=== PATIENT | female | born 1945 | race Caucasian/White ===

== ENCOUNTER 2024-12-25 11:04 | Inpatient (IN) | payer MEDICARE, SELFPAY ==
--- OUTSIDE RECORDS SUMMARY | 2024-12-21 23:59 | XMS_ITS | Continuity of Care Document ---
Author Organization [facility] Address [address] [place] [phone]- Care Team Providers Care Chief Program Officer Name Role Phone Janet Cueva Primary Care Physician Encounter [facility] ACCT R [id number] Date(s): 11/21/24 - 12/21/24 [facility] [address] [place] [phone] Encounter Type: Triage Allergies, Adverse Reactions, Alerts No Known Allergies Immunizations Given and Recorded Vaccine Date Status Refusal Reason SARS-CoV-2 (COVID-19) mRNA BNT-162b2 vac 08/19/20 Given SARS-CoV-2 (COVID-19) mRNA BNT-162b2 vac 07/29/20 Given Tetanus Toxoid Vaccine (oldterm) 02/09/98 Given Medications Albuterol (Eqv-ProAir HFA) 90 mcg/inh inhalation aerosol 0 Refills, Maintenance, 01/10/24 11:48:00 AM EDT, Partial fill upon patient request if the prescription is for a schedule II opioid drug. Start Date: 01/10/24 Status: Ordered Repeat number: 1 albuterol 0.083% inhalation solution 3 mL = 2.5 mg, Neb, Every 6 hours, PRN as needed for wheezing, # 90 mL, 0 Refills, Maintenance, 06/04/22 1:33:00 PM EST, Solution, Partial fill upon patient request if the prescription is for a schedule II opioid drug., 165.1, cm, 06/04/22 12:54:00 EST, Height Start Date: 06/04/22 Status: Ordered Quantity: 90.0 Unit: mL Repeat number: 1 albuterol 0.083% inhalation solution 3 mL = 2.5 mg, Inhalation, Every 6 hours, PRN Wheezing/Shortness of Breath, # 360 mL, 0 Refills, Maintenance, 1/7/17 5:18:06 PM EST Start Date: 06/25/16 Stop Date: 07/25/16 Status: Ordered Quantity: 360.0 Unit: mL Repeat number: 1 Caltrate 600 with D 1 tablet, By Mouth, 2 times a day, 0 Refills, 11/10/05 11:28:16 AM EDT Start Date: 11/10/05 Status: Ordered Repeat number: 1 Claritin 10 mg oral tablet 10 mg, 1, tablet, By Mouth, Daily, 0 Refills Start Date: 11/10/05 Status: Ordered Repeat number: 1 Eliquis 5 mg oral tablet 1 tablet, By Mouth, 2 times a day, # 60 tablet, 5 Refills, Maintenance, 10/31/24 2:36:00 PM EDT, [facility], 165.1, cm, 10/22/24 11:55:00 EDT, Height, 68, kg, 02/26/24 11:08:00 EDT, Dry Weight Start Date: 10/31/24 Status: Ordered Quantity: 60.0 Unit: tablet Repeat number: 1 ipratropium nasal 21 mcg/inh spray 2 sprays, Nares, Both, 2 times a day, # 30 mL, 0 Refills, Maintenance, 01/31/20 4:17:00 PM EDT, [place] Start Date: 01/31/20 Status: Ordered Quantity: 30.0 Unit: mL Repeat number: 1 lisinopril 5 mg oral tablet 5 mg, 1, tablet, By Mouth, Daily, # 30 tablet, Refills 0, Maintenance, 01/12/24 10:05:00 AM EDT, Partial fill upon patient request if the prescription is for a schedule II opioid drug. Start Date: 01/12/24 Status: Ordered Quantity: 30.0 Unit: tablet Repeat number: 1 metoprolol 25 mg oral tablet, extended release 25 mg, 1, tablet, By Mouth, Daily, # 30 tablet, Refills 11, Tot. Refills 11, Maintenance, 12/22/21 1:32:00 PM EDT, Route to Pharmacy Electronically, [facility]/pharmacy #[id number], Partial fill upon patient request if the prescription is for a schedule II opioid drug., 165.1, cm, 12/22/21 13:08:00 EDT, Height, 66.9, kg, 03/09/20 16:53:00 EDT, Dry Weight Start Date: 12/22/21 Status: Ordered Quantity: 30.0 Unit: tablet Repeat number: 12 oxyCODONE 5 mg oral tablet Refills 0, Tot. Refills 0, Maintenance, 01/30/24 1:47:00 PM EDT, Partial fill upon patient request if the prescription is for a schedule II opioid drug. Start Date: 01/30/24 Status: Ordered Repeat number: 1 simethicone 250 mg oral capsule 1 capsule = 250 mg, By Mouth, Daily, PRN as needed for gas, not to exceed 2 capsules/day, # 12 capsule, 0 Refills, Maintenance, 03/04/20 10:59:00 AM EDT, Capsule Start Date: 03/04/20 Status: Ordered Quantity: 12.0 Unit: capsule Repeat number: 1 tiZANidine 2 mg oral tablet 2 mg, 1, tablet, By Mouth, Every 8 hours, PRN, # 42 tablet, Refills 0, Tot. Refills 0, Maintenance,as needed for muscle spasm, 01/17/24 3:06:00 PM EDT, Route to Pharmacy Electronically, [facility], Partial fill upon patient request if the prescription is for a schedule II opioid drug., 165.1, cm, 01/12/24 9:50:00 EDT, Height, 67.4, kg, 01/17/24 9:34:00 EDT, Dry Weight Start Date: 01/17/24 Stop Date: 01/31/24 Status: Ordered Quantity: 42.0 Unit: tablet Repeat number: 1 Tylenol 325 mg oral tablet 650 mg, 2, tablet, By Mouth, Every 4 hours, PRN, # 84 tablet, Refills 0, Tot. Refills 0, Maintenance, Pain , Mild, 03/11/20 9:30:00 AM EDT, Route to Pharmacy Electronically, [facility], 165.1, cm, 03/11/20 7:02:00 EDT, Height, 66.9, kg, 03/09/20 16:53:00 EDT, Dry Weight Start Date: 03/11/20 Stop Date: 03/18/20 Status: Ordered Quantity: 84.0 Unit: tablet Repeat number: 1 Problem List Condition Confirmation Course Effective Dates Status H ealth Status Informant Postprandial abdominal bloating Confirmed 01/17/20 Active Postprandial epigastric pain Confirmed 01/17/20 Active History of repair of mitral valve 1 Confirmed 1999 Active Claudication of lower extremity Confirmed Active Incarcerated paraesophageal hernia Confirmed 01/17/20 Active Osteopenia Confirmed Active Perennial allergic rhinitis Confirmed Active 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 UTI - Urinary tract infection Confirmed Active 1ECHO 05 w/ LAE normal EF Social History Social History Type Response Smoking Status Former smoker, quit more than 30 days ago entered on: 01/12/24 Sex Sex Representation Female (finding) Patient Care team information Care Team Personnel Name: Janet Cueva Position: Reference Physician Member Role: PCP Address: [address] [place] [address] [address] [place] [address] Telecom: Care Team Related Persons Name: MYAH DURBIN Insurance Providers Guarantor name: SANDRA DURBIN [facility] Plan Information #: 1 Payer: [employer] AD[employer] H[employer] Payer Identifier: AVINASH Member Number: [id number] Group Number: [id number] Subscriber Identifier: [id number] Relationship to Subscriber: self Coverage Type: Medicare HMO Coverage Verification Date: NA Telecom: NA Address:
--- NOTE | 2024-12-25 | ECG_ITS ---
Test Reason : r/o prolonged qt Blood Pressure : */* mmHG Vent. Rate : 71 BPM Atrial Rate : 72 BPM P-R Int : 172 ms QRS Dur : 84 ms QT Int : 408 ms P-R-T Axes : 27 32 47 degrees QTcB Int : 443 ms Normal sinus rhythm Low voltage QRS Borderline ECG No previous ECGs available Referred By: Caitlin Salmeron Electronically Signed By: Stephen Duff
--- OUTSIDE RECORDS SUMMARY | 2024-12-25 09:30 | XMS_ITS | Encounter Summary ---
Author Organization [facility] Address [address] [place] [id number] Care Team Providers Care Care Manager Cna Name Role Phone Janet Garcia PA-C Primary Care Provi vinita Rohit Goodrich MD Unavailable Reason for Referral * Diagnostic Imaging (Routine) - Pending Review Specialty Diagnoses / Procedures Referred By Sintia morris Referred To Contact Diagnoses Pulmonary nodule History of tobacco use Procedures CT Chest Low Dose Cancer Annual Screening Janet Garcia PA-C [address] [place] [address] Phone: tel: fax: Referral ID Status Reason Start Date Expiration Date V isits Requested Visits Authorized [id number] Pending Review 12/25/2024 12/26/2025 1 1 Reason for Visit * Reason Comments Annual Exam Encounter Details Date Type Department Care Team ([facility] Contact Info) Description 12/25/2024 9:30 AM EDT Office Visit [address] [place] [phone] Janet Garcia PA-C [address] [place] [address] 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 0 days 12/25/2024 On average, how many minutes do you exercise per day at this level? 0 min 12/25/2024 Comments No Sex and Gender Information Value Date Recorded Sex Assigned at Female 07/06/2023 2:24 PM EST Legal Sex Female 2:23 PM EST Gender Identity Not on file Sexual Orientation Not on file documented as of this encounter Last Filed Vital Signs Vital Sign Reading Time Taken Comments Blood Pressure 168/94 12/25/2024 8:52 AM EDT Pulse 78 12/25/2024 8:52 AM EDT Temperature 36.2 C (97.1 F) 12/25/2024 8:52 AM EDT Respiratory Rate 16 12/25/2024 8:52 AM EDT Oxygen Saturation 100% 12/25/2024 8:52 AM EDT Inhaled Oxygen Concentration - - Weight 62.1 kg (137 lb) 12/25/2024 8:52 AM EDT Height 165.1 cm (5' 5 ) 12/25/2024 8:52 AM EDT Body Mass Index 22.8 12/25/2024 8:52 AM EDT documented in this encounter Functional Status * Question Answer Date of Assessment Author Feeling nervous, anxious, or on edge 1 02/2025 9:05 AM EDT Alonso Delaney MA Not being able to stop or co ntrol worrying 1 12/25/2024 9:05 AM EDT Alonso Delaney MA Worrying too much about diff erent things 1 12/25/2024 9:05 AM EDT Alonso Delaney MA Trouble relaxing 0 12/25/2024 9:05 AM EDT Alonso Adam MA Being so restless that it is hard to sit still 0 12/25/2024 9:05 AM EDT Alonso Delaney MA Becoming easily annoyed or irritable 1 02/2025 9:05 AM Alonso Foster MA Feeling afraid as if somethi ng awful might happen 1 12/25/2024 9:05 AM Alonso Foster M A * Over the past 2 weeks, how often have you been bothered by any of the following problems? Question Answer Date of Assessment Author Patient Health Questionnaire-2 Score 6 02/2025 9:03 AM Alonso Foster MA * Question Answer Date of Assessment Author Patient Health Questionnaire-9 Score 26 02/2025 9:03 AM Alonso Foster MA * Over the last 2 weeks, how often have you been bothered by any of the following problems? Question Answer Date of Assessment Author SALTY-7 Total Score 5 12/25/2024 9:05 AM Alonso Foster MA * Question Answer Date of Assessment Author Little interest or pleasure in doing things Nearly every day 12/25/2024 9:03 AM Sascha Foster MA Feeling down, depressed, or hopeless Nearly every day 12/25/2024 9:03 AM Alonso Foster MA Trouble falling or staying asleep, or sleeping too much Nearly every day 12/25/2024 9:03 AM Alonso Foster MA Feeling tired or having little energy Nearly every day 12/25/2024 9:03 AM Alonso Foster MA Poor appetite or overeating Nearly every day 12/25/2024 9:03 AM Alonso Foster MA Feeling bad about yourself - or that you are a failure or have let yourself or your family down Nearly every day 12/25/2024 9:03 AM Alonso Foster MA Trouble concentrating on things, such as reading the newspaper or watching television Nearly every day 12/25/2024 9:03 AM Alonso Foster MA Moving or speaking so slowly that other people could have noticed? Or the opposite - being so fidgety or restless that you have been moving around a lot more than usual. Nearly every day 12/25/2024 9:03 AM Alonso Foster MA Thoughts that you would be better off or hurting yourself in some way More than half the days 12/25/2024 9:03 AM EDT Alonso Delaney MA How difficult have these problems made it for you to do your work, take care of things at home, or get along with other people? 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) * Assessment & Plan Note - Janet Garcia PA-C - 12/25/2024 10:16 AM EDTAssociated Problem(s): Osteopenia Orders: DEXA Bone density-Hip/pelvis/spine w/fx eval (Axial); Future * Assessment & Plan Note - Janet Garcia PA-C - 12/25/2024 10:16 AM EDTAssociated Problem(s): Pulmonary nodule Orders: CT Chest Low Dose Cancer Annual Screening; Future * Assessment & Plan Note - Janet Garcia PA-C - 12/25/2024 10:16 AM EDTAssociated Problem(s): History of tobacco use Orders: CT Chest Low Dose Cancer Annual Screening; Future documented in this encounter Plan of Treatment Upcoming Encounters Date Type Department Care Team (Late st Contact Info) Description 06/27/2025 9:45 AM EST Office Visit [address] [place] [phone] Janet Garcia PA-C [address] [place] [address] Scheduled Orders Name Type Priority Associated Diagnoses Orde r Schedule DEXA Bone density-Hip/pelvis/spin e w/fx eval (Axial) Imaging Routine Osteopenia, unspecified location Expected: 12/25/2024, Expires: 12/25/2026 CT Chest Low Dose Cancer Annual Screening Imaging Routine Pulmonary nodule History of tobacco use Expected: 12/25/2024, Expires: 06/27/2026 XR Hips w pelvis 3 or 4 views-Bilateral Imaging Routine Bilateral hip pain Expected: 12/25/2024, Expires: 12/25/2025 documented as of this encounter Visit Diagnoses Diagnosis 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 and thrombosis of arteries of lower extremity Osteopenia, unspecified location Pulmonary nodule Other diseases of lung, not elsewhere classified History of tobacco use Personal history of tobacco use, presenting hazards to health Bilateral hip pain Pain in joint, pelvic region and thigh documented in this encounter Care Teams Care Manager Cna Relationship Specialty Start Date End Date Janet Garcia PA-C [address] [place] [address] PCP - General Internal Medicine 08/16/23 Rohit Goodrich MD [address] [place] [id number] Referring Provider Cardiology Hospitalist 12/15/23 Sag[facility] 11/13/23 documented as of this encounter
[2024-12-25 11:08] VITALS: BP 167/83; PULSE 73; RESP 16; TEMP 37; O2SAT 99; BMI 23.7
--- NOTE | 2024-12-25 11:08 | ED.PSYCH ---
HPI - Psych General Chief Complaint: Psychiatric Symptoms Stated Complaint: SI Time Seen by Provider: 12/25/24 11:13 Source: patient Mode of arrival: ambulatory Limitations: no limitations History of Present Illness ED Provider: Caitlin Salmeron PA-C HPI Narrative: Patient is an 79 year old assigned female at with a history of mitral valve repair presenting to the emergency department today with suicidal ideation and depression. Patient states that she has felt this way for awhile but will not elaborate. Patient denies any dizziness, lightheadedness, abdominal pain, nausea, vomiting, fever, chills, blurry vision, double vision, loss of vision, chest pain, difficulty breathing, shortness of breath, back pain, night sweats, pain with urination, increased urinary frequency, increased urinary urgency, blood in her urine or stool, syncope or a near syncopal episode, recent trauma or falls, bowel incontinence, bladder incontinence, or any other complaints at this time. MD complaint: suicidal ideation and feels depressed Related Data Home Medications ?Medication ?Instructions ?Recorded ?Confirmed apixaban 5 mg tablet (Eliquis) 5 mg PO BID 12/25/24 12/26/24 lisinopril 5 mg tablet 5 mg PO DAILY 12/25/24 12/25/24 metoprolol succinate 25 mg 25 mg PO DAILY 12/25/24 12/25/24 tablet,extended release 24 hr peg 400-propylene glycol (PF) 0.4 1 drp ophthalmic (eye) DAILY PRN 12/25/24 12/25/24 %-0.3 % eye drops in a dropperette Dry Eye(S) (Systane (PF)) simethicone 250 mg capsule 250 mg PO BID PRN Gas 12/25/24 12/25/24 Allergies Allergy/AdvReac Type Severity Reaction Status Date / Time No Known Allergies Allergy Verified 12/25/24 11:18 Review of Systems Constitutional: Constitutional: Reports no additional constitutional complaints, Denies chills, Denies fever(s) and Denies night sweats Eyes: Eyes: Reports no additional eye complaints, Denies blurry vision, Denies change in vision, Denies diplopia, Denies eye discharge, Denies loss of vision and Denies eye pain ENT: Denies dizziness Cardiovascular: Cardiovascular: Reports no additional cardiovascular complaints, Denies chest pain, Denies lightheadedness, Denies Loss of Consciousness and Denies dyspnea Respiratory: Respiratory: Reports no additional respiratory complaints and Denies dyspnea Gastrointestinal: Gastrointestinal: Reports no additional gastrointestinal complaints, Denies abdominal pain, Denies melena, Denies hematochezia, Denies change in bowel habits and Denies change in stool character Genitourinary: Genitourinary: Denies hematuria, Denies urinary frequency, Denies dysuria, Denies urinary incontinence, Denies urinary hesitancy and Denies urinary urgency Musculoskeletal: Musculoskeletal: Reports no additional musculoskeletal complaints, Denies numbness and Denies tingling Neurologic: Denies dizziness, Denies loss of vision, Denies numbness and Denies tingling Psychiatric: Psychiatric: Reports no additional psychiatric complaints, Reports depression, Denies homicidal ideation and Reports suicidal ideation Endocrine: Endocrine: Reports no additional endocrine complaints Hematologic/Lymphatic: Hematologic/Lymphatic: Reports no additional hematologic/lymphatic complaints Allergic/Immunologic: Allergic/Immunologic: Reports no additional allergic/immunologic complaints [facility] Past Medical History Attestation statement: The following information was validated with the patient. Source: old records reviewed and nursing notes reviewed Social History Social History Household Members: Spouse Housing: House Do you presently have visiting nurse or other home services: No Alcohol intake: current Alcohol intake frequency: 3 or more drinks per day Patient Tobacco Use Status: Former Tobacco user Smoked in Last 30 Days: No e-Cigarette/Vaping Use: Never Used Use of substances other than those prescribed or required for medical reasons: No Currently Displaying Signs/Symptoms of Drug Intoxication Withdrawal: No Have you been hit, kicked, punched, or otherwise hurt by someone within the past year? If so, by whom?: No Do you feel safe in your current relationship?: Yes Is there a partner from a previous relationship who is making you feel unsafe now?: No Are you made to feel afraid or neglected: No Advance Directives: No Advance Directives Information Provided: Yes Do you have thoughts of harming others: None Do you have a plan to hurt others: No Plan Recently lost weight without trying: No Nutrition Risks: No Nutritional Risk Patient : No service: No Sexual orientation: Straight/Heterosexual Physical Exam Vital Signs: Vital Signs: Last Vital Signs Temp 97.8 F 12/30/24 08:00 Pulse 75 12/30/24 08:59 Resp 116 H 12/30/24 08:00 BP 158/69 H 12/30/24 09:00 Pulse Ox 98 12/30/24 08:00 O2 Del Method Room Air 12/30/24 08:00 BMI result Body Mass Index 23.7 Const: General: cooperative, no acute distress, alert and awake Nutritional Appearance: well nourished Orientation/consciousness: patient oriented x3 HEENT: Head: Yes normal to inspection and Yes atraumatic Ears: hearing grossly normal bilaterally and external ears normal General nose exam: Normal external nose present, no nasal discharge noted and no epistaxis Face and sinus: Yes normal facial exam, No abrasion and No laceration Mouth: Normal oral and palatal mucosa present, no drooling and no muffled voice Eyes: General: appearance normal, both eyes and all related structures Periorbital: periorbital findings normal Eyelids: Yes eyelids normal Conjunctivae: conjunctivae normal Pupils: Equal, round and reactive pupils present EOM: EOMs intact bilaterally Neck: Neck: Yes normal visual inspection, Yes full ROM and Yes no lymphadenopathy Resp: Effort & Inspection: normal respiratory effort and able to speak in complete sentences Neuro: General: patient oriented x3, moves all extremities and CN's II-XI intact bilaterally Cranial nerves: Yes Equal, round and reactive pupils present Cognition (Neuro): normal cognition Extrem: General: Yes normal to inspection, Yes full ROM and Yes capillary refill normal Psych: Appearance: grossly normal Mental Status: mental status grossly normal Affect: Sad affect present Attitude: Guarded attititude/behavior present Thought content: Suicidality present Course Course Course Narrative: This is an RME: Additional HPI, ROS, PE not included below will be deferred to primary provider. RME assessment and note performed by: Cindy Castillo PA-C This is a 74-nab[age]-ace-female, with a hx of hypertension, who presents to the ER with concerns for depression and suicidal ideations. Pt was seen at her PCP's office this morning and was told to come to the ED. Has had these symptoms for a while . Hx of suicidal ideations in the past. She does have a plan in mind but does not elaborate. Drinks 6 glasses of wine per day, last use was last night. No hx of drug use. No hx of any psychiatric admissions in the past. Hx of lumbar disc surgery in 2023. Plan: Labs, UA, crisis Reevaluation(s) Reevaluation #1: 12/26/2024; 10;00 DR. Scruggs's progress note. VSS, care team input is appreciated patient is section 12 now, bed search is underway, no events reported by nursing overnight, will continue monitoring. Time: 10:00 Reevaluation #2: Patient will be admitted to , discontinue physician observation now. Time: 14:47 Medications Administered Generic Name Dose Route Start Last Admin Trade Name Freq PRN Reason Stop Dose Admin Apixaban 5 mg 12/25/24 18:00 12/30/24 08:59 Apixaban 5 Mg Tablet PO 5 mg BID@0800,1800 KEVIN Administration Escitalopram Oxalate 10 mg 12/29/24 09:00 12/30/24 09:00 Escitalopram Oxalate 10 Mg Tablet PO 10 mg DAILY KEVIN Administration Hydroxyzine HCl 50 mg 12/27/24 18:57 12/29/24 17:13 Hydroxyzine Hcl 50 Mg Tablet PO 50 mg Q6H PRN Administration Anxiety Lisinopril 5 mg 12/26/24 09:00 12/30/24 09:00 Lisinopril 5 Mg Tablet PO 5 mg DAILY KEVIN Administration Protocol Metoprolol Succinate 25 mg 12/26/24 09:00 12/30/24 08:59 Metoprolol Succinate Er 25 Mg Tab.Er.24h PO 25 mg DAILY KEVIN Administration Protocol Simethicone 240 mg 12/27/24 21:00 12/30/24 08:59 Simethicone 80 Mg Tab.Chew PO 240 mg BID KEVIN Administration Thiamine HCl 100 mg 12/27/24 09:00 12/30/24 09:00 Thiamine Hcl 100 Mg Tablet PO 100 mg DAILY KEVIN Administration Discontinued Medications Generic Name Dose Route Start Last Admin Trade Name Freq PRN Reason Stop Dose Admin Escitalopram Oxalate 5 mg 12/26/24 17:55 12/28/24 08:04 Escitalopram Oxalate 5 Mg Tablet PO 5 mg DAILY KEVIN Administration Hydroxyzine HCl 25 mg 12/26/24 11:10 12/26/24 11:12 Hydroxyzine Hcl 25 Mg Tablet PO 12/26/24 11:11 25 mg ONCE ONE Administration Simethicone 240 mg 12/25/24 17:06 12/27/24 16:40 Simethicone 80 Mg Tab.Chew PO 240 mg BID PRN Administration Gas Medical Decision Making Medical Decision Making [facility] Narrative: Patient is an 79 year old assigned female at with a history of mitral valve repair presenting to the emergency department today with suicidal ideation and depression. Patient's physical exam was as noted in the physical exam portion of this note. Patient's blood work was unremarkable. Patient's urine showed no acute process. I explained my physical exam findings as well as all test results to the patient. I answered all questions asked by the patient. Patient pending CARE evaluation. Patient's disposition will be determined after CARE team evaluation. Differential Diagnosis Differential Diagnoses: The differential diagnosis associated with the presentation includes SI Depression Admission/Observation Consideration of admission/observation: Escalation of care including admission/observation considered Patient's disposition will be determined after CARE team evaluation. Lab Data [facility] Lab Attestation statement: I reviewed the patient's lab results. My interpretation of these results are in the MDM Rationale portion of this note. 12/25/24 13:03 12/25/24 13:03 Labs: Lab Results 12/25/24 12/25/24 Range/Units 11:35 13:03 WBC 3.8 L (4.8-10.8) X10*3/uL RBC 4.13 L (4.20-5.50) X10*6/uL Hgb 14.0 (12.0-16.0) g/dl Hct 39.6 (37.0-47.0) % MCV 95.9 (80.0-98.0) fL MCH 33.9 H (27.0-33.0) pg MCHC 35.4 H (31.0-35.0) g/dl RDW 12.6 (11.0-16.0) % Plt Count 159 L (160-400) X10*3/uL MPV 10.8 (9.4-12.3) fL Immature Gran % (Auto) 0.3 (0.0-0.4) % Neut % (Auto) 49.9 (45-73) % Lymph % (Auto) 35.9 (20-40) % George % (Auto) 11.5 H (2-11) % Eos % (Auto) 1.6 (0-4) % Baso % (Auto) 0.8 (0-2) % Lymph # (Auto) 1.4 (1.2-4.9) X10*3/uL George # (Auto) 0.4 (0.1-1.2) X10*3/uL Eos # (Auto) 0.1 (0.0-0.4) X10*3/uL Baso # (Auto) 0.0 (0.0-0.2) X10*3/uL Abs Immat Gran (auto) 0.01 (0.00-0.03) X10*3/uL Absolute Neuts (auto) 1.9 L (2.0-8.3) x10*3/uL Absolute Nucleated RBC 0.000 (0.0-0.012) X10*3/uL Nucleated RBC % (auto) 0.0 (0.0-0.2) /100WBC Sodium 142 (135-145) mmol/L Potassium 4.4 (3.3-5.1) mmol/L Chloride 110 H (96-108) mmol/L Carbon Dioxide 24 (22-29) mmol/L Anion Gap 12 (12-20) BUN 10 (9-16) mg/dL Creatinine 0.60 (0.5-1.4) mg/dL Estim Creat Clear Calc 67.2 Estimated GFR > 60 Random Glucose 99 (60-115) mg/dL Calcium 8.9 (8.4-10.2) mg/dL Total Bilirubin 0.7 (0.0-1.0) mg/dL AST 25 (5-31) U/L ALT 6 (0-31) U/L Alkaline Phosphatase 56 (39-117) U/L Total Protein 6.6 (6.5-8.0) g/dL Albumin 3.9 (3.5-5.0) g/dL Urine Color Dark Yellow Urine Appearance Clear Urine pH 5.5 (5.0-9.0) Ur Specific [place] 1.015 (1.005-1.025) Urine Protein Negative (Neg-Trace) mg/dL Urine Glucose (UA) Negative (Negative) mg/dL Urine Ketones Negative (Negative) mg/dL Urine Blood Trace H (Negative) Urine Nitrite Negative (Negative) Ur Leukocyte Esterase Trace H (Negative) Urine RBC 3-5 H (0-2) /HPF Urine WBC 0-5 (0-5) /HPF Ur Squamous Epith Cells 0-2 (0-2) /HPF Urine Bacteria None Seen (None Seen) Hyaline Casts 0-2 (0-2) /LPF Salicylates < 5.0 L (15-30) mg/dL Urine Opiates Screen Not Detected (Not Detect) Ur Buprenorphine Scrn Not Detected (Not Detect) ng/mL Ur Oxycodone Screen Not Detected (Not Detect) ng/mL Urine Methadone Screen Not Detected (Not Detect) ng/mL Urine Fentanyl Screen Not Detected (Not Detect) Acetaminophen < 3 (<30) mcg/mL Ur Barbiturates Screen Not Detected (Not Detect) Ur Phencyclidine Scrn Not Detected (Not Detect) Ur Amphetamines Screen Not Detected (Not Detect) U Benzodiazepines Scrn Not Detected (Not Detect) Urine Cocaine Screen Not Detected (Not Detect) U Marijuana (THC) Screen Not Detected (Not Detect) Ethyl Alcohol < 10 mg/dL Discharge Plan Discharge Clinical Impression: Suicidal ideation, Depression Patient Disposition: Admitted As Inpatient Interventions: Admission Worksheet (ED) Last Done: 12/26/24 15:46 Discharge Date/Time: 12/26/24 15:46
[2024-12-25 11:59] LABS: Appearance Urine Clear; Glucose Urine UA Negative (Negative); PH 5.5 (5.0-9.0); Specific Gravity - Urine 1.015 (1.005-1.025); UMIC TRIGGER UA YES
[2024-12-25 12:10] LABS: Cannabinoid Screen Urine Not Detected (Not Detect)
[2024-12-25 13:07] LABS: MANUAL DIFF FLAG NO
[2024-12-25 13:09] LABS: Hematocrit 39.6 % (37.0-47.0); Hemoglobin 14.0 g/dl (12.0-16.0); Imm Gran Abs Auto 0.01 X10*3/uL (0.00-0.03); Imm Gran Pct Auto 0.3 % (0.0-0.4); Lymphocytes Absolute Auto 1.4 X10*3/uL (1.2-4.9); Mean Corpuscular HGB Conc 35.4 g/dl (31.0-35.0); Mean Corpuscular Hemoglobin 33.9 pg (27.0-33.0); Mean Corpuscular Volume 95.9 fL (80.0-98.0); NRBC Abs Auto 0.000 X10*3/uL (0.0-0.012); NRBC Pct Auto 0.0 /100WBC (0.0-0.2); Platelet Count 159 X10*3/uL (160-400); Red Blood Count 4.13 X10*6/uL (4.20-5.50); White Blood Count 3.8 X10*3/uL (4.8-10.8)
[2024-12-25 13:23] LABS: Acetaminophen LAB < 3 mcg/mL (<30); Salicylate < 5.0 mg/dL (15-30)
[2024-12-25 13:25] LABS: Alanine Aminotransferase 6 U/L (0-31); Albumin Level 3.9 g/dL (3.5-5.0); Alkaline Phosphatase 56 U/L (39-117); Anion Gap 12 (12-20); Aspartate Amino Transferase 25 U/L (5-31); Blood Urea Nitrogen 10 mg/dL (9-16); Calcium 8.9 mg/dL (8.4-10.2); Carbon Dioxide 24 mmol/L (22-29); Chloride 110 mmol/L (96-108); Creatinine Clr Calc Pharmacy 67.2; Estimated Glomerular Filt Rate > 60; Potassium 4.4 mmol/L (3.3-5.1); Sodium 142 mmol/L (135-145); Total Protein 6.6 g/dL (6.5-8.0)
[2024-12-25 14:00] VITALS: BP 151/81; PULSE 77; RESP 18; TEMP 36.7; O2SAT 97
--- OUTSIDE RECORDS SUMMARY | 2024-12-25 14:02 | XMS_ITS | Data Portability ---
Author Organization [place] - [facility], Allergy Address [address] [address] Care Team Providers Care Loss Prevention Auditor Name Role Phone HERMINIA SCANLON Primary Care Provider Assessment Encounter Date Assessment Date Assessment LastModified by Organization Details LastModified Time 06/20/2024 06/20/2024 Patient describes a 6 months of decreased sense of smell and taste. Her examination today with nasal endoscopy identified a right maxillary sinus infection with purulence. 10-day course of Augmentin submitted to pharmacy. I would like her to give us an update through the portal. It is possible her loss of smell and taste is not related to the sinus infection but rather related to viral illness. She denies other changes that would be associated with loss of smell such as central neurologic, Alzheimer's. It is also possible aging can cause this. At the end of the visit she requested follow-up to discuss her hearing loss [email or web address] Not available 06/20/2024 14:51:02 08/19/2024 08/19/2024 Patient has bilateral sensorineural hearing loss as noted on her audiometric testing from April. [facility] and has [facility] care through them. She inquired about cochlear implant but recognizes she is not ready to pursue them at this time. I offered her a discussion with Dr. Ruffin at a future visit and she will likely schedule when ready [email or web address] Not available 08/19/2024 13:26:12 Plan of Treatment Reminders Order Date Submit Date Provider Last Modified By Organization Details Last Modified Time Details Appointments None recorded. Lab None recorded. Referral None recorded. Procedures None recorded. Surgeries None recorded. Imaging None recorded. Medication Orders Augmentin 875 mg-125 mg tablet 2024 025 [facility], [address], [address], [place], [address], 5 14:46:15 Patient TargetsNo targets recorded. Patient InstructionsNo instructions recorded. Reason for Referral None Reported. Results Created Date Observation Date Name Description Value Unit Range Abnormal Flag Note LastModifiedBy Organization Detail LastModifiedTime 05/23/20 24 05/06/2024 audio gram No observ ation record ed. [email or web address] Not Available 10/2023 13:28:15 Result Notes None recorded. Problems Name Problem SNOMED Code Status Onset Date Resolution Date Notes Provider Name and Address Organization Details Recorded Time Sensorine ural hearing loss of bilateral ears 729701000 Active 2019 Sensorine ural hearing loss, bilateral ; Note: Date Diagnosed : 07/30/2019 12:12 PM (H90.3) Not Available [facility] 4 03:21:05 Vasomotor rhinitis 1429949 Active 2019 Vasomotor rhinitis; Note: Date Diagnosed : 07/30/2019 12:09 PM (J30.0) Not Available [facility] 4 03:21:05 Cough 79732100 Active 2022 Cough; Note: Date Diagnosed : 10/13/2022 2:40 PM (R05) Not Available [facility] 4 03:21:05 Allergic rhinitis 26874764 Active 2019 Other allergic rhinitis; Note: Date Diagnosed : 07/30/2019 12:09 PM (J30.89) Not Available [facility] 4 03:21:05 Loss of sense of smell 23944529 Active 2024 ZAC HALL MD [address] [facility], [place], [address] , [place] - [facility] 5 14:45:32 Chronic right maxillary sinusitis 51477024138 776917 Active 2024 ZAC HALL MD [address] [place] [address],[place] [address], [place], [address] , [place] - [facility] [place] 14:45:40 Problem Notes None recorded. Procedures Surgical History Date Name Laterality Status Provider Name and Address Organization Details Recorded Time 08/19/2024 NasalEndos copy_DP completed ZAC HALL MD 100 [facility],[address], [address], [facility] 08/19/2024 13:24:38 06/20/2024 NasalEndos copy_DP completed ZAC HALL MD 100 [facility],[address], [address], [facility] 06/20/2024 14:45:25 Imaging Results None recorded. Procedure Notes None recorded. Medical Equipment None Reported. Allergies No known drug allergies Medications Name Sig Start Date Stop Date Status Note LastModified by Organization Details LastModified Time amoxicill in 500 mg capsule 06/20 completed Not Available Not Available Not Available tizanidin e 2 mg tablet TAKE 1 TABLET BY MOUTH EVERY 8 HOURS NEEDED FOR MUSCLE SPASMS active Not Available Not Available No t Available lisinopri l 20 mg-hydroc hlorothia zide 12.5 mg tablet active Not Available Not Available No t Available neomycin- polymyxin -dexameth 3.5 mg/mL-10, 000 unit/mL-0 .1% eye drops active Not Available Not Available Not Available clindamyc in phosphate 1 % topical swab 06/20 completed Not Available Not Available Not Available lisinopri l 5 mg tablet active Not Available Not Available Not Available metoprolo l succinate ER 25 mg tablet,ex tended release 24 hr active Not Available Not Available Not Available lorazepam 1 mg tablet active Not Available Not Available Not Available methylpre dnisolone 4 mg tablets in a dose pack active Not Available Not Available Not Available albuterol sulfate HFA 90 mcg/actua tion aerosol inhaler active Not Available Not Available Not Available ipratropi um bromide 42 mcg (0.06 %) nasal spray active Not Available Not Available Not Available ipratropi um bromide 21 mcg (0.03 %) nasal spray Magnolia 2 spray into both nostrils three times a day 2019 active Medicati on ID: [id number] D uration Value: 90 Prescri bed By Name: Zac Hall M.D. Bra elsa Name: ipratrop ium bromide Send Method: E-Prescr ibed Sub s Allowed: subs [place] Medic ationGen ericName : ipratrop ium bromide Not Available Not Available Not Available amoxicill in 875 mg-potass ium clavulana te 125 mg tablet Take 1 tablet every 12 hours by oral route for 10 days, for sinus infectio n. active Not Available Not Available No t Available oxycodone 5 mg tablet TAKE 1 TABLET BY MOUTH EVERY 6 HOURS NEEDED FOR PAIN active Not Available Not Available No t Available duloxetin e 60 mg capsule,d elayed release 2019 active Medicati on ID: [id number] B rand Name: duloxeti ne Send Method: E-Prescr ibed Sub s Allowed: subs [place] Medic ationGen ericName : duloxeti ne Not Available Not Available Not Available Flonase 2 puff into both nostrils 2019 active Medicati on ID: [id number] D uration Value: 120 Brand Name: flonase Send Method: E-Prescr ibed Sub s Allowed: subs [place] Medic ationGen ericName : flonase Not Available Not Available Not Available Eliquis 5 mg tablet active Not Available Not Available No t Available Vitals Date Recorded Body height Body mass index (BMI) Body weight Provider Name and Address Organization Details Last Updated DateTime 06/20/2024 166.37 cm 22.9 kg/m2 72206.93 g Shameka Gill [facility] 06/20/2024 14:33:27 Date Recorded Body height Body mass index (BMI) Body weight Provider Name and Address Organization Details Last Updated DateTime 08/19/2024 166.37 cm 22.9 kg/m2 77377.93 g Mae Jon [facility] 08/19/2024 13:11:33 Social History None recorded. Functional Status None recorded. Mental Status None recorded. Family History Nothing Reported. Medical History No medical history recorded. Gynecological HistoryNo gynecological history recorded. Obstetrics History GPAL:G 0 P 0 0 0 0 Past Encounters Encounter ID Performer Location Encounter Start Date Encounter Closed Date Diagnosis/Indication Diagnosis SNOMED-CT Code Diagnosis ICD10 Code Diagnosis Note [id number] ZAC HALL MD [facility] [address] [place] [address] 06/20/2024 14:09:12 06/20/2024 14:52:14 Loss of sense of smell 65002632 R43.0 Chronic ri ght maxillary sinusitis 0821548087 2826959 J32.0 [id number] ZAC HALL MD [facility] [address] [place] [address] 08/19/2024 13:05:20 08/19/2024 14:34:28 Loss of sense of smell 80560217 R43.0 stable, likely will persist, discussed safety associated with spoiled food, smoke detectors Chronic ri ght maxillary sinusitis 5867449413 5600657 J32.0 resolved on exam with nasal endoscopy Sensorineu ral hearing loss of bilateral ears 401839296 H90.3 Health Concerns Section Related Observation LastModified by Organization Detai ls LastModified Time None Recorded Concern Status LastModified by Organization Details LastModified Time None Recorded Advance Directives Directive None Recorded Payers Insurance Date Sequence Insurance Name Policy Number Policy Burt Covered Member ID Burt Member ID Guarantor Name 08/19/[address] [place] [address] [id number] Mary Beth Argueta [id number] Mary Beth Argueta Notes Date Note Type Note Provider Name and Address Organization Details Recorded Time 06/20/2024 text/html decreased sense of tastegradual over past 6 monthsnot associated with a new medication or any recall of infectionno prior nose surgeryno epistaxisat night feels alternating nasal congestionno imagingdenies sneeze or allergy sx PV 10/13/22 Danielle - cough, resolved prior to visit ZAC HALL MD [address] [place] [address],[place] [address], [place], [address], [place] - [facility] 06/20/2024 14:51:28 08/19/2024 text/html hearing [place] 3 rd set of hearing aids [place] [facility] since 2009they are helpful to use 05/06/24 audio BMCRight - mod to severe SNHL, SRT 65Left - Severe SNHL, SRT 70 loss of smell and taste was not changed from abx. PV 06/20/24 Neema, loss of smell x 6 months, identified right max sinusitis rx augmentin x 10 days. requested future apt to check hearing ZAC HALL MD [address] [place] [address], [place], [address], [facility] - [facility] 08/19/2024 13:26:29 OBGyn Episode No OBEpisode recorded.
--- OUTSIDE RECORDS SUMMARY | 2024-12-25 14:02 | XMS_ITS ---
Author Name [facility] Organization Unknown History of Medication Use Medication Directions Dispensed Refills Start Date End Date Stat us DULoxetine (CYMBALTA) 60 MG capsule Take 1 capsule (60 mg total) by mouth daily. 08/16/2023 aborted ipratropium (ATROVENT) 0.06 % nasal spray 2 sprays into each nostril 4 (four) times a day. 08/16/2023 aborted albuterol (PROVENTIL HFA; VENTOLIN HFA) 108 (90 Base) MCG/ACT inhaler Inhale 2 puffs 4 times daily (every 6 hours) as needed. active Problems Problem Status Onset Date Problem Type Date of Resoluti on Source IFG (impaired fasting glucose) active 2023-08-12 ProblemAct [facility] Allergic rhinitis active 2023-08-12 ProblemAct [facility] Alcohol abuse active 2023-08-12 ProblemAct [facility] T Lumbar disc disease active 2023-08-12 ProblemAct [facility] Hearing loss active 2023-08-12 ProblemAct [facility] Thrombocytopenia active 2023-08-12 ProblemAct [facility] History of colon polyps active 2023-08-12 ProblemAct [facility] History of tobacco use active 2023-08-12 ProblemAct [facility] Osteopenia active 2023-08-12 ProblemAct [facility] CHIP (obstructive sleep apnea) active 2023-08-12 ProblemAct [facility] Major depressive disorder, recurrent episode, in partial remission active 2023-08-12 ProblemAct [facility] HTN (hypertension) active 2023-08-12 ProblemAct [facility] Osteoarthritis active 2023-08-[address] Pulmonary nodule active 2023-08-12 ProblemAct [facility] Immunizations Vaccine Date Source Lot Number Status Influenza, Quadrivalent (FLU ARIX, AFLURIA, FLULAVAL, FLUZONE) Preservative Free IM 04/21/2023 [facility] completed Tdap 12/02/2020 [facility] completed Zoster Vaccine Recombinant (Shingrix) 05/28/2020 [facility] completed Zoster Vaccine Recombinant (Shingrix) 11/28/2019 [facility] completed Pneumococcal Conjugate 13-Valent 09/26/2014 [facility] completed Pneumococcal Polysaccharide 23-Valent 07/13/2011 CCT completed Zoster Vaccine Live/Attenuated (Zostavax) 07/09/2010 [facility] completed Encounters Encounter Type Encounter Reason Primary Diagnosis Location Date Ambulatory Annual Exam Annual Exam [facility] 12/25/2024 Ambulatory Mild intermittent asthma, uncomplicated Mild intermittent asthma, uncomplicated [facility] 11/14/2024 Ambulatory Impaired fasting glucose Impaired fasting glucose [facility] 06/17/2024 Ambulatory Other specified postprocedural states Other specified postprocedural states [facility] 12/15/2023 Ambulatory Bitten or stung by nonvenomous insect and other nonvenomous arthropods, initial encounter Bitten or stung by nonvenomous insect and other nonvenomous arthropods, initial encounter [facility] 12/04/2023 Ambulatory Allergic rhinitis du e to pollen Allergic rhinitis due to pollen [facility] 08/16/2023 Care Team Organization Name Specialty Phone Email Start Date End Da te [facility] GHISLAINE Primary Care 11/14/2024 [facility] HERMINIA SCANLON Primary Care 08/16/2023 [facility] PCP Traffic Signal Repairer 08/16/2023 12/13/2024 [facility] NO PCP Primary Care 07/09/2023
--- OUTSIDE RECORDS SUMMARY | 2024-12-25 14:02 | XMS_ITS | Clinical Summary ---
Author Organization [facility] [address] [facility] Address [address] [place] [address] Phone Care Team Providers Care Information Tech Name Role Phone Janet Garcia Primary Care Provider [phone] Allergies No known active allergies Medications simethicone 250 mg capsule Take 250 mg by mouth. 0 Active metoprolol succinate (TOPROL-XL) 25 mg 24 hr tablet Take 1 tablet (25 mg total) by mouth daily. 2 Active loratadine (Claritin) 10 mg tablet Take 1 tablet (10 mg total) by mouth. 6 Active lisinopriL (PRINIVIL,ZESTR IL) 5 mg tablet Take 1 tablet (5 mg total) by mouth 1 (one) time each day. 4 Active ipratropium (ATROVENT) 21 mcg (0.03 %) nasal spray Administer into affected nostril(s). 0 Active calcium carbonate-vit D3-min 600 mg-10 mcg (400 unit) tablet Take 1 tablet by mouth 2 times daily. Active apixaban (ELIQUIS) 5 mg tablet Take 1 tablet (5 mg total) by mouth. 4 Active albuterol 2.5 mg /3 mL (0.083 %) nebulizer solution Inhale 3 mL (2.5 mg total) by mouth. 2 Active Active Problems Problem Noted Date Diagnosed Date Depression 07/05/2024 HTN (hypertension) 07/05/2024 Allergies 07/05/2024 Asthma 07/05/2024 Colon polyps 07/05/2024 Assessment & Plan (07/05/2024 12:23 PM EST): Deep vein blood clot of righ t lower extremity ([facility] V24, [facility] V28) 07/05/2024 Raynaud's disease 07/05/2024 Encounters Date Type Department Care Team Description 10/03/2024 Telephone Gastroenterology - [address] [place] [address] Sierra Campos PA PROVIDER CALL BACK from Last 3 Months Surgical History Surgery Date Site/Laterality Comments MITRAL VALVE REPAIR COLON SURGERY 06/19/2009 - 06/18/2010 Right right hemicolectomy due to flat TVA - Dr. Nelson COLONOSCOPY 04/19/2009 - 05/18/2009 2 large, flat TVA right colon, sig tics COLONOSCOPY 05/19/2010 - 06/18/2010 sig tics, hemorrhoids (3 yr) COLONOSCOPY 08/17/2013 - 09/16/2013 left sided tic, hemorrhoids (5 yr) COLONOSCOPY 06/19/2019 - 07/19/2019 left sided tics, hemorrhids (5 yr) ESOPHAGOGASTRODUODENOSCOPY 08/17/2013 - 09/16/2013 hiatal hernia,nl mucosa, nl gastric biopsy Social History Tobacco Use Types Packs/Day Years Used Date Smoking Tobacco: Former Cigarettes Tobacco Cessation:Counseling Given: Not Answered Alcohol Use Standard Drinks/Week Comments Yes 5 (1 standard drink = 0.6 oz pur e alcohol) daily Comments Unknown Sex and Gender Information Value Date Recorded Sex Assigned at Not on file Legal Sex Female 10:25 AM EST Gender Identity Not on file Sexual Orientation Not on file Obstetrics History Last Filed Vital Signs Vital Sign Reading Time Taken Comments Blood Pressure - - Pulse - - Temperature - - Respiratory Rate - - Oxygen Saturation - - Inhaled Oxygen Concentration - - Weight 65.3 kg (144 lb) 07/05/2024 10:56 AM EST Height 167.6 cm (5' 6 ) 07/05/2024 10:56 AM EST Body Mass Index 23.24 07/05/2024 10:56 AM EST Plan of Treatment Health Maintenance Due Date Last Done Comments Hepatitis A Vaccines (1 of 2 - Risk 2-dose series) 11/05/1964 Cholesterol Screening (Lipid Panel) 06/28/2024 Depression Screening 06/28/2024 Falls Risk Assessment 06/28/2024 Medicare Annual Wellness Visit 06/28/2024 Osteoporosis Screening (Bone Density Screening) 06/28/2024 Social Influencers of Health Screening 06/28/2024 COVID-19 Vaccine ( season) 2024 03/26/2024, 07/21/2023, 04/07/2021, Additional history exists Hypertension/CHF/CAD Annual BMP Blood Test 11/28/2024 11/29/2023 Influenza Vaccine (#1) 2025 03/26/2024, 2022 DTaP,Tdap,and Td Vaccines (2 - Td or Tdap) 12/02/2030 12/02/2020 Pneumococcal Vaccine: 50+ Years Completed 09/26/2014, 07/13/2011 Zoster Vaccines Completed 05/28/2020, 11/17, 07/09/2010 RSV Immunization Adult Patients Completed 04/25/2024 HIB Vaccines Aged Out No longer eligi ble based on patient's age to complete this topic HPV Vaccines Aged Out No longer eligi ble based on patient's age to complete this topic Hepatitis B Vaccines Aged Out No long er eligible based on patient's age to complete this topic IPV Vaccines Aged Out No longer eligi ble based on patient's age to complete this topic MMR Vaccines Aged Out No longer eligi ble based on patient's age to complete this topic Meningococcal ACWY Vaccine Aged Out N o longer eligible based on patient's age to complete this topic Meningococcal B Vaccine Aged Out No l onger eligible based on patient's age to complete this topic RSV Immunization Patients Under 20 months Aged Out No longer eligible based on patient's age to complete this topic Varicella Vaccines Aged Out No longer eligible based on patient's age to complete this topic Insurance [employer] Care Teams Information Tech Relationship Specialty Start Date End Date Janet Garcia PA [address] [place] [address] PCP - General Physician Investment Banking Associate 06/28/24
--- NOTE | 2024-12-25 16:13 | PC.NURSE ---
Pt appears tearful in her bed at this time, reporting being uncomfortable due to the stiffness of the mattresses. Pt offering no complaints to this RN at this time
--- NOTE | 2024-12-25 16:14 | PC.NURSE ---
RE: med rec this Rn completed pts med rec with bottles brought in from home and verbal verification with patient
--- NOTE | 2024-12-25 19:26 | PC.NURSE ---
patient receiving visit from SO? presently seated relaxing on couch in common area, patient appears in no distress
[2024-12-25 20:44] VITALS: BP 134/71; PULSE 76; RESP 14; TEMP 36.6; O2SAT 97
[2024-12-26 07:55] VITALS: BP 177/95; PULSE 79; RESP 13; TEMP 36.1; O2SAT 97
[2024-12-26] MEDS: Metoprolol Succinate ER 25 MG TAB.ER.24H PO (08:31)
--- NOTE | 2024-12-26 11:32 | PC.NURSE ---
Pt pacing and crying around the unit. Tech and nurse went to speak with the pt and she expressed she is feeeling anxious. Provider made aware and ordered hydroxyzine
--- NOTE | 2024-12-26 12:36 | PHA.MEDREC ---
Addendum entered by Danielle Donahue RPh 12/26/24 12:52: Reviewed by [facility] Original Note: Pharmacy Consult ? Medication Reconciliation Pharmacy reviewed med rec done by nursing. Got Rx bottles in pt belongings with nurse and confirmed the Rx bottles were up to date and matches what nurse confirmed.
[2024-12-26 17:28] VITALS: BP 159/74; PULSE 73; RESP 16; TEMP 36.3; O2SAT 99
[2024-12-26 17:29] VITALS: BMI 23.5
--- NOTE | 2024-12-26 17:58 | PC.ADMIT ---
Mary Beth is a 79 yr old female with a history of mitral valve surgery, lumbar surgery and a clot in the right femoral artery. She presented to the Er with suicidal ideation with a plan to drive her car on the highway and crash it. She has been having difficulty adjusting to getting older and now not having the stamina to do the things she used to do. She is continent of bowel/bladder, independent with ambulation. She is on a Regular diet. She has been given a diagnosis of SI/depression. She does consume alcohol/wine on a nightly basis approx 5 -6 glasses but most of it is watered down. It has been 2 days since he last drink and her CIWA is zero and has been since admission.
[2024-12-26 19:58] VITALS: BP 109/64; PULSE 84; TEMP 36.9; O2SAT 99
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
[2024-12-27 09:32] VITALS: BP 153/82; PULSE 91; RESP 18; TEMP 36.6; O2SAT 98
[2024-12-27] MEDS: Metoprolol Succinate ER 25 MG TAB.ER.24H PO (09:34)
--- NOTE | 2024-12-27 10:43 | P.CONHOSP_ITS ---
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 She initially presented to her primary care office this morning and was told to come to the ED. patient is admitted to [facility] for further care. Patient is followed closely by vascular surgery for claudication right greater than left. She recently had MASON's and saw vascular in November, she is scheduled to follow up every 4 months. Patient is also followed by Cardiology. Patient had an echocardiogram in 2023 with demonstrated an EF of 55-60%, she also had a stress test in with no evidence of stress- induced ischemia or prior GA. On exam she denies any shortness of breath, dizziness lightheadedness, headache, pain in her legs or any other concerning symptoms. She feels well and relieved that she is here for care. Review of Systems 2 Review of Systems: Denies any shortness of breath, chest pain, dizziness, lightheadedness, abdominal pain or discomfort, nausea vomiting or diarrhea PMFSH Social History Household Members: Spouse Housing: House Do you presently have visiting nurse or other home services: No Alcohol intake: current Alcohol intake frequency: 3 or more drinks per day Patient Tobacco Use Status: Former Tobacco user Smoked in Last 30 Days: No e-Cigarette/Vaping Use: Never Used Use of substances other than those prescribed or required for medical reasons: No Currently Displaying Signs/Symptoms of Drug Intoxication Withdrawal: No Have you been hit, kicked, punched, or otherwise hurt by someone within the past year? If so, by whom?: No Do you feel safe in your current relationship?: Yes Is there a partner from a previous relationship who is making you feel unsafe now?: No Are you made to feel afraid or neglected: No Advance Directives: No Advance Directives Information Provided: Yes Do you have thoughts of harming others: None Do you have a plan to hurt others: No Plan Recently lost weight without trying: No Nutrition Risks: No Nutritional Risk Patient : No Meds Allergies Allergy/AdvReac Type Severity Reaction Status Date / Time No Known Allergies Allergy Verified 12/25/24 11:18 Active Medications: Current Medications Acetaminophen (Acetaminophen 325 Mg Tablet) 650 mg PO Q6H PRN PRN Reason: Headache/Pain, Scale 1-10 Al Hydroxide/Mg Hydroxide (Magnesium Hydrox/Alum Hydrox 30 Ml Oral.Susp) 30 ml PO Q6H PRN PRN Reason: Heartburn/Nausea Apixaban (Apixaban 5 Mg Tablet) 5 mg PO BID@0800,1800 [facility] Last Admin: 12/27/24 09:34 Dose: 5 mg Artificial Tears (Artificial Tears 15 Ml Drops) 1 drop EYE-BOTH DAILY PRN PRN Reason: Dry Eye(S) Escitalopram Oxalate (Escitalopram Oxalate 5 Mg Tablet) 5 mg PO DAILY [facility] Last Admin: 12/27/24 09:33 Dose: 5 mg Lisinopril (Lisinopril 5 Mg Tablet) 5 mg PO DAILY [facility]; Protocol Last Admin: 12/27/24 09:34 Dose: 5 mg Lorazepam (Lorazepam 1 Mg Tablet) 1 mg PO Q2H PRN PRN Reason: CIWA 8-11 Lorazepam (Lorazepam 1 Mg Tablet) 2 mg PO Q2H PRN PRN Reason: CIWA 12-15 Lorazepam (Lorazepam 1 Mg Tablet) 3 mg PO Q2H PRN PRN Reason: CIWA > 15, and call Magnesium Hydroxide (Milk Of Magnesia 30 Ml Oral.Susp) 30 ml PO DAILY PRN PRN Reason: Constipation Metoprolol Succinate (Metoprolol Succinate Er 25 Mg Tab.Er.24h) 25 mg PO DAILY [facility]; Protocol Last Admin: 12/27/24 09:34 Dose: 25 mg Nicotine Polacrilex (Nicotine Polacrilex 2 Mg Gum) 2 mg BUCCAL Q2H PRN PRN Reason: Nicotine Cravings Simethicone (Simethicone 80 Mg Tab.Chew) 240 mg PO BID PRN PRN Reason: Gas Last Admin: 12/27/24 09:44 Dose: 240 mg Thiamine HCl (Thiamine Hcl 100 Mg Tablet) 100 mg PO DAILY [facility] Last Admin: 12/27/24 09:34 Dose: 100 mg Trazodone HCl (Trazodone Hcl 50 Mg Tablet) 50 mg PO BEDTIME MRX1 PRN PRN Reason: Insomnia Home Medications ?Medication ?Instructions ?Recorded ?Confirmed ?Last Taken ?Type apixaban 5 mg tablet (Eliquis) 5 mg PO BID 12/25/2412/25/24 History lisinopril 5 mg tablet 5 mg PO DAILY 12/25/2412/2512/25/24 History metoprolol succinate 25 mg 25 mg PO DAILY 12/25/2403/1312/25/24 History tablet,extended release 24 hr peg 400-propylene glycol (PF) 0.4 1 drp ophthalmic (ey e) DAILY PRN 12/25/24 12/25/24 12/25/24 History %-0.3 % eye drops in a dropperette Dry Eye(S) (Systane (PF)) simethicone 250 mg capsule 250 mg PO BID PRN Gas 12/2512/25/24 12/25/24 History Physical Exam 2 Vital Signs and Narrative: Vital Signs: Last Vital Signs Temp 97.9 F 12/27/24 09:32 Pulse 91 12/27/24 09:32 Resp 18 12/27/24 09:32 BP 153/82 H 12/27/24 09:32 Pulse Ox 98 12/27/24 09:32 O2 Del Method Room Air 12/27/24 09:32 BMI result Body Mass Index 23.5 CONST: Alert and oriented, in NAD. Well nourished HEENT: Normocephalic, atraumatic, MMM, Eyes clear, Neck supple. HABEMATOLEL RESP: Lungs clear, RRR even and regular HEART:,RRR, S1, S2. No murmur, no edema GI:Abdomen Soft NT, ND. + BS times four :Deferred SKIN: Warm dry and intact, no visible lesions or rashes NEURO:CN II-XII Intact bilaterally, Sensation intact. Speech clear PSYCH: Normal affect Results Labs 12/25/24 13:03 12/25/24 13:03 Assessment and Plan (1) Arterial embolism and thrombosis of lower extremity: Status: Acute Plan Depression with suicidal ideation Treatment plan per psychiatric team Arterial emboli and thrombus of lower extremity/claudication Patient to continue on Eliquis lifelong Followed closely by vascular every 4 months She denies any leg pain at present Hypertension Blood pressure is stable Continue on lisinopril and metoprolol Lower back pain/status post L4-L5 laminectomy in 2023 Patient denies any pain at present Continue to monitor and offer Tylenol as needed Thank you for allowing me to participate in the care of this patient. Will follow as needed. Please reconsult of any acute concerns or issues arise
--- NOTE | 2024-12-27 10:55 | HO.PSYCHPN ---
Subjective Subjective Date of Service: 12/27/24 Reason For Visit: SI/ Depression Interim History: Met with patient; discussed with team; reviewed chart Patient reports intermittent passive SI started when she was 78 yo (up until which time she was very active). Then sciatica; disc surgery; other co-morbid stuff severely limiting her very active life Patient says that her was concerned concerned about SI comments but patient said that although she said it, it was just in frustration and she was not thinking of actually harming herself at all and denies any intent or plan. She says she has not had any actual real suicidal ideation since her grandchildren were born, 9 years ago. Discussed medications and patient reports that she has to be on an antidpepressant, that helped but also caused a lot of sweating; can not remember the name of it. She wants to be back on medication and agrees with having been restarted on Lexapro and titrating it. Also discussed T MS. Patient shared about trauma history and said she could use a good therapist. Mental Status Exam Mental Status Exam Narrative: Pt is alert and oriented; behavior is cooperative, friendly and calm; patient is not in distress; dressed in hospital attire with unkempt hair but adequate hygiene; mood is described as depressed and affect congruent; eye contact appropriate; Speech is normal rate, volume and prosody and not pressured; no psychomotor agitation/retardation present; thought process is organized and goal directed; Thought content is on tx; otherwise pertinent to relevant topics and without any delusional content, paranoid ideations or grandiosity; denies any SI/HI. Denies AVH and there is no evidence of perceptual disturbance. Patients insight and judgment appear intact. Diagnostics Vital Signs (24Hr): Vital Signs - 24 hr 12/26/24 17:28 12/26/24 19:58 12/27/24 09:32 Temperature 97.3 F 98.4 F 97.9 F Pulse Rate 73 84 91 Respiratory Rate 16 18 Blood Pressure 159/74 H 109/64 153/82 H Pulse Oximetry 99 99 98 Oxygen Delivery Method Room Air Room Air Room Air BMI result Body Mass Index 23.5 Labs 12/25/24 13:03 12/25/24 13:03 Labs: Laboratory Results - last 48 hr 12/25/24 12/25/24 11:35 13:03 WBC 3.8 L RBC 4.13 L Hgb 14.0 Hct 39.6 MCV 95.9 MCH 33.9 H MCHC 35.4 H RDW 12.6 Plt Count 159 L MPV 10.8 Immature Gran % (Auto) 0.3 Neut % (Auto) 49.9 Lymph % (Auto) 35.9 Wolfe % (Auto) 11.5 H Eos % (Auto) 1.6 Baso % (Auto) 0.8 Lymph # (Auto) 1.4 Wolfe # (Auto) 0.4 Eos # (Auto) 0.1 Baso # (Auto) 0.0 Abs Immat Gran (auto) 0.01 Absolute Neuts (auto) 1.9 L Absolute Nucleated RBC 0.000 Nucleated RBC % (auto) 0.0 Sodium 142 Potassium 4.4 Chloride 110 H Carbon Dioxide 24 Anion Gap 12 BUN 10 Creatinine 0.60 Estim Creat Clear Calc 67.2 Estimated GFR > 60 Random Glucose 99 Calcium 8.9 Total Bilirubin 0.7 AST 25 ALT 6 Alkaline Phosphatase 56 Total Protein 6.6 Albumin 3.9 Urine Color Dark Yellow Urine Appearance Clear Urine pH 5.5 Ur Specific [place] 1.015 Urine Protein Negative Urine Glucose (UA) Negative Urine Ketones Negative Urine Blood Trace H Urine Nitrite Negative Ur Leukocyte Esterase Trace H Urine RBC 3-5 H Urine WBC 0-5 Ur Squamous Epith Cells 0-2 Urine Bacteria None Seen Hyaline Casts 0-2 Salicylates < 5.0 L Urine Opiates Screen Not Detected Ur Buprenorphine Scrn Not Detected Ur Oxycodone Screen Not Detected Urine Methadone Screen Not Detected Urine Fentanyl Screen Not Detected Acetaminophen < 3 Ur Barbiturates Screen Not Detected Ur Phencyclidine Scrn Not Detected Ur Amphetamines Screen Not Detected U Benzodiazepines Scrn Not Detected Urine Cocaine Screen Not Detected U Marijuana (THC) Screen Not Detected Ethyl Alcohol < 10 Medications Medications Current Medications Acetaminophen (Acetaminophen 325 Mg Tablet) 650 mg PO Q6H PRN PRN Reason: Headache/Pain, Scale 1-10 Al Hydroxide/Mg Hydroxide (Magnesium Hydrox/Alum Hydrox 30 Ml Oral.Susp) 30 ml PO Q6H PRN PRN Reason: Heartburn/Nausea Apixaban (Apixaban 5 Mg Tablet) 5 mg PO BID@0800,1800 [facility] Last Admin: 12/27/24 09:34 Dose: 5 mg Artificial Tears (Artificial Tears 15 Ml Drops) 1 drop EYE-BOTH DAILY PRN PRN Reason: Dry Eye(S) Escitalopram Oxalate (Escitalopram Oxalate 5 Mg Tablet) 5 mg PO DAILY [facility] Last Admin: 12/27/24 09:33 Dose: 5 mg Lisinopril (Lisinopril 5 Mg Tablet) 5 mg PO DAILY [facility]; Protocol Last Admin: 12/27/24 09:34 Dose: 5 mg Lorazepam (Lorazepam 1 Mg Tablet) 1 mg PO Q2H PRN PRN Reason: CIWA 8-11 Lorazepam (Lorazepam 1 Mg Tablet) 2 mg PO Q2H PRN PRN Reason: CIWA 12-15 Lorazepam (Lorazepam 1 Mg Tablet) 3 mg PO Q2H PRN PRN Reason: CIWA > 15, and call Magnesium Hydroxide (Milk Of Magnesia 30 Ml Oral.Susp) 30 ml PO DAILY PRN PRN Reason: Constipation Metoprolol Succinate (Metoprolol Succinate Er 25 Mg Tab.Er.24h) 25 mg PO DAILY [facility]; Protocol Last Admin: 12/27/24 09:34 Dose: 25 mg Nicotine Polacrilex (Nicotine Polacrilex 2 Mg Gum) 2 mg BUCCAL Q2H PRN PRN Reason: Nicotine Cravings Simethicone (Simethicone 80 Mg Tab.Chew) 240 mg PO BID PRN PRN Reason: Gas Last Admin: 12/27/24 09:44 Dose: 240 mg Thiamine HCl (Thiamine Hcl 100 Mg Tablet) 100 mg PO DAILY [facility] Last Admin: 12/27/24 09:34 Dose: 100 mg Trazodone HCl (Trazodone Hcl 50 Mg Tablet) 50 mg PO BEDTIME MRX1 PRN PRN Reason: Insomnia Allergies Allergies Allergy/AdvReac Type Severity Reaction Status Date / Time No Known Allergies Allergy Verified 12/25/24 11:18 Assessment & Plan Assessment & Plan (1) Depression: Status: Acute Code(s): F32.A - Depression, unspecified (2) Suicidal ideation: Status: Acute Code(s): R45.851 - Suicidal ideations (3) HTN (hypertension): Status: Acute Code(s): I10 - Essential (primary) hypertension Plan HPI: Patient is a 79 year old, , Khmer speaking, female who self -presented to the ED reporting depression and suicidal ideation with a plan. Patient was seen at her PCP this morning and her PCP advocated for patient to be assessed. Patient reported increased depression, patient has been reporting to that I wish I were . Patient reported that she often thinks about suicide and has a plan to drive my sport car on the [employer] [address] [place] passed the [place] exit where the openness is and crash. Patient reported that she has also had a significant weight loss of approximately 20lbs in the past 6+ months due to not being able to taste/smell. Increased sleep, increased depression, increased suicidal thoughts with plan. No prior history of psychiatric admission. No outpatient psychiatrist or therapist. Not currently on antidepressant. Due to back surgery, she can not do any favorite activities such as traveling, skiing, hiking, gardening. She also drink 5-6 small classes of why daily in the past 10 years to help with depression and help her sleep at night. Formulation/clinical reasoning: Lost weight due to lost of taste after the back surgery, can not travel, skiing, hiking, gardening or other activities as she used to do before surgery. She feels some decline in cognitive-forgetful things. Increase suicidal thoughts with plan. History of two passive suicide attempts where she walked out of the house without shoes, without winter coat and lying down on the golf ?near her house during winter time. No current psychiatric treatment. She has been drinking 5-6 glasses of wine daily in the past 10 years to cope with depression, and help her sleep. The above information contribute to her suicidal thoughts and depression. She was diagnosed with depression. Given the above information. Patient good benefit from restrictive environment for her safety. Medication management, and refer patient to outpatient services with [facility], outpatient psychiatrist and therapist. Hospital course: 12/26/24: Denies SI/SIB/HI/AVH. Mild cognitive decline but appropriate. Review with patient regarding medication list. Patient agrees to start Lexapro 5 mg for depression which she was supposed to take from her PCP but she has not yet started. She is very motivated for treatment Lexapro 5 mg daily in the morning. First dose given today. Eliquis 5 mg twice a day as blood thinner Artificial eye drops for dry eye daily p.r.n. Ativan PRNs per [place] protocol. Not yet seen any symptoms of withdrawal at this current time. Blood pressure slightly elevated Simethicone 240 mg twice a day as needed for gas Thiamine-vitamin B1 100 mg daily Trazodone and hydroxyzine 25 mg as needed per protocol. 7/11 Patient reports intermittent passive SI started when she was 78 yo (up until which time she was very active). Then sciatica; disc surgery; other co-morbid stuff severely limiting her very active life Patient says that her was concerned concerned about SI comments but patient said that although she said it, it was just in frustration and she was not thinking of actually harming herself at all and denies any intent or plan. She says she has not had any actual real suicidal ideation since her grandchildren were born, 9 years ago. Discussed medications and patient reports that she has to be on an antidpepressant, that helped but also caused a lot of sweating; can not remember the name of it. She wants to be back on medication and agrees with having been restarted on Lexapro and titrating it. Also discussed T MS. Patient shared about trauma history and said she could use a good therapist. Plan: Patient on 5 minute checks for safety 24 hours. We will reassess if patient appropriate for 15 minutes check Admitted to . CV. Continue Lexapro 5 mg; titrate to 10 mg T MS consult placed Work with treatment team to do collateral for aftercare. Patient good like to get more information regarding PHP. Patient was medically cleared at [facility]. Patient educated on: diagnosis, medication risk/benefits, TMS and therapeutic strategies Informed Consent: understands Reason for continued inpatient stay Substantial Risk for: stable for discharge, rapid decompensation and med/psych decompensation Time Spent With Patient Time: Total time managing care of this patient today ____ minutes.
[2024-12-27 20:00] VITALS: BP 141/73; PULSE 72; RESP 16; TEMP 36.3; O2SAT 100
[2024-12-28 08:00] VITALS: BP 143/70; PULSE 80; RESP 18; TEMP 36.6; O2SAT 99
[2024-12-28] MEDS: Metoprolol Succinate ER 25 MG TAB.ER.24H PO (08:04)
[2024-12-28 12:19] VITALS: BP 177/80; PULSE 70; RESP 16; TEMP 36.3; O2SAT 100
[2024-12-28 13:29] VITALS: BP 137/68; PULSE 78
[2024-12-28 20:00] VITALS: BP 140/78; PULSE 73; RESP 16; TEMP 36.4; O2SAT 98
--- NOTE | 2024-12-28 20:46 | HO.PSYCHPN ---
Subjective Subjective Date of Service: 12/28/24 Reason For Visit: SI/ Depression Subjective Notes: 3 Day Healthcare Proxy: No Guardianship: No Medical Problems Affecting Mental Status: No Interim History: Medical record and nursing notes reviewed; case discussed during rounds with team/nursing staff, and met with patient for supportive therapy/psychoeducation, as well as medication management. Per chart review, patient slept for 8 hours, was medication compliant, denies side effects. Reports not good appetite but not much change as her sense of taste is not there. She is anxious thinking about home. Was tearful talking about her grandkids who are there at her house today. She states that she misses them. Blood pressure slightly elevated due to anxiety. She does not score on CIWA send admitted. Therefore I discontinued it with the Ativan p.r.n. increase her Lexapro for depression/anxiety, tolerate with a 5 mg well. Denies any other safety concerns.. Medication Compliance: Yes Side effects from medications: No Attending Groups: Yes Review of Systems Acute medical concerns: No Medical Review of Systems: unchanged Review of Systems Review of Systems Denies any shortness of breath, chest pain, dizziness, lightheadedness, abdominal pain or discomfort, nausea vomiting or diarrhea Yes all other systems are reviewed and are negative Mental Status Exam Mental Status Exam Narrative: Pt is alert and oriented; behavior is cooperative, friendly but anxious; patient is not in distress; dressed in hospital attire with adequate hygiene; mood is described as anxious and affect congruent; eye contact appropriate; Speech is normal rate, volume and prosody and not pressured; no psychomotor agitation/retardation present; thought process is organized and goal directed; Thought content is on tx; otherwise pertinent to relevant topics and without any delusional content, paranoid ideations or grandiosity; denies any SI/HI. Denies AVH and there is no evidence of perceptual disturbance. Patients insight and judgment appear intact. Diagnostics Vital Signs (24Hr): Vital Signs - 24 hr 12/28/24 08:00 12/28/24 12:19 12/28/24 13:29 Temperature 97.8 F 97.4 F Pulse Rate 80 70 78 Respiratory Rate 18 16 Blood Pressure 143/70 H 177/80 H 137/68 Pulse Oximetry 99 100 Oxygen Delivery Method Room Air Room Air BMI result Body Mass Index 23.5 Labs 12/25/24 13:03 12/25/24 13:03 Medications Medications Current Medications Acetaminophen (Acetaminophen 325 Mg Tablet) 650 mg PO Q6H PRN PRN Reason: Headache/Pain, Scale 1-10 Al Hydroxide/Mg Hydroxide (Magnesium Hydrox/Alum Hydrox 30 Ml Oral.Susp) 30 ml PO Q6H PRN PRN Reason: Heartburn/Nausea Apixaban (Apixaban 5 Mg Tablet) 5 mg PO BID@0800,1800 [facility] Last Admin: 12/28/24 17:05 Dose: 5 mg Artificial Tears (Artificial Tears 15 Ml Drops) 1 drop EYE-BOTH DAILY PRN PRN Reason: Dry Eye(S) Escitalopram Oxalate (Escitalopram Oxalate 10 Mg Tablet) 10 mg PO DAILY [facility] Hydroxyzine HCl (Hydroxyzine Hcl 50 Mg Tablet) 50 mg PO Q6H PRN PRN Reason: Anxiety Last Admin: 12/28/24 12:22 Dose: 50 mg Lisinopril (Lisinopril 5 Mg Tablet) 5 mg PO DAILY [facility]; Protocol Last Admin: 12/28/24 08:05 Dose: 5 mg Magnesium Hydroxide (Milk Of Magnesia 30 Ml Oral.Susp) 30 ml PO DAILY PRN PRN Reason: Constipation Metoprolol Succinate (Metoprolol Succinate Er 25 Mg Tab.Er.24h) 25 mg PO DAILY [facility]; Protocol Last Admin: 12/28/24 08:04 Dose: 25 mg Nicotine Polacrilex (Nicotine Polacrilex 2 Mg Gum) 2 mg BUCCAL Q2H PRN PRN Reason: Nicotine Cravings Simethicone (Simethicone 80 Mg Tab.Chew) 240 mg PO BID [facility] Last Admin: 12/28/24 08:05 Dose: 240 mg Thiamine HCl (Thiamine Hcl 100 Mg Tablet) 100 mg PO DAILY [facility] Last Admin: 12/28/24 08:04 Dose: 100 mg Trazodone HCl (Trazodone Hcl 50 Mg Tablet) 50 mg PO BEDTIME MRX1 PRN PRN Reason: Insomnia Allergies Allergies Allergy/AdvReac Type Severity Reaction Status Date / Time No Known Allergies Allergy Verified 12/25/24 11:18 Assessment & Plan Assessment & Plan (1) Depression: Status: Acute Code(s): F32.A - Depression, unspecified (2) Suicidal ideation: Status: Acute Code(s): R45.851 - Suicidal ideations (3) HTN (hypertension): Status: Acute Code(s): I10 - Essential (primary) hypertension Plan HPI: Patient is a 79 year old, , Slovak speaking, female who self -presented to the ED reporting depression and suicidal ideation with a plan. Patient was seen at her PCP this morning and her PCP advocated for patient to be assessed. Patient reported increased depression, patient has been reporting to that I wish I were . Patient reported that she often thinks about suicide and has a plan to drive my sport car on the [place] passed the [place] exit where the openness is and crash. Patient reported that she has also had a significant weight loss of approximately 20lbs in the past 6+ months due to not being able to taste/smell. Increased sleep, increased depression, increased suicidal thoughts with plan. No prior history of psychiatric admission. No outpatient psychiatrist or therapist. Not currently on antidepressant. Due to back surgery, she can not do any favorite activities such as traveling, skiing, hiking, gardening. She also drink 5-6 small classes of why daily in the past 10 years to help with depression and help her sleep at night. Formulation/clinical reasoning: Lost weight due to lost of taste after the back surgery, can not travel, skiing, hiking, gardening or other activities as she used to do before surgery. She feels some decline in cognitive-forgetful things. Increase suicidal thoughts with plan. History of two passive suicide attempts where she walked out of the house without shoes, without winter coat and lying down [place] the [place] during winter time. No current psychiatric treatment. She has been drinking 5-6 glasses of wine daily in the past 10 years to cope with depression, and help her sleep. The above information contribute to her suicidal thoughts and depression. She was diagnosed with depression. Given the above information. Patient good benefit from restrictive environment for her safety. Medication management, and refer patient to outpatient services with [facility], outpatient psychiatrist and therapist. Hospital course: 12/26/24: Denies SI/SIB/HI/AVH. Mild cognitive decline but appropriate. Review with patient regarding medication list. Patient agrees to start Lexapro 5 mg for depression which she was supposed to take from her PCP but she has not yet started. She is very motivated for treatment Lexapro 5 mg daily in the morning. First dose given today. Eliquis 5 mg twice a day as blood thinner Artificial eye drops for dry eye daily p.r.n. Ativan PRNs per CIWA protocol. Not yet seen any symptoms of withdrawal at this current time. Blood pressure slightly elevated Simethicone 240 mg twice a day as needed for gas Thiamine-vitamin B1 100 mg daily Trazodone and hydroxyzine 25 mg as needed per protocol. 12/27 Patient reports intermittent passive SI started when she was 78 yo (up until which time she was very active). Then sciatica; disc surgery; other co-morbid stuff severely limiting her very active life Patient says that her was concerned concerned about SI comments but patient said that although she said it, it was just in frustration and she was not thinking of actually harming herself at all and denies any intent or plan. She says she has not had any actual real suicidal ideation since her grandchildren were born, 9 years ago. Discussed medications and patient reports that she has to be on an antidpepressant, that helped but also caused a lot of sweating; can not remember the name of it. She wants to be back on medication and agrees with having been restarted on Lexapro and titrating it. Also discussed T MS. Patient shared about trauma history and said she could use a good therapist. 12/28/24: Slept well, compliant with medications. No side effects. Mood is anxious and depressed, somewhat tearful, missing home. No safety concerns. Increase Lexapro up to 10 mg daily to target depression/anxiety. Discontinue CIWA and Ativan per protocol. Three day notice in place Plan: Patient on 15 minute checks. Three day notice on 01/01-Monday. Titration on Lexapro. TMS consult placed Work with treatment team to do collateral for aftercare. Patient good like to get more information regarding PHP. Patient was medically cleared at [facility]. Patient educated on: diagnosis, medication risk/benefits and therapeutic strategies Informed Consent: understands Reason for continued inpatient stay Substantial Risk for: med/psych decompensation Time Spent With Patient Time: Total time managing care of this patient today ____ minutes.
[2024-12-29 07:51] VITALS: BP 148/66; PULSE 65; RESP 18; TEMP 36.4; O2SAT 99
[2024-12-29] MEDS: Metoprolol Succinate ER 25 MG TAB.ER.24H PO (08:02)
--- NOTE | 2024-12-29 11:45 | P.PNPSI_ITS ---
Subjective Subjective Date of Service: 12/29/24 Reason For Visit: SI/ Depression Subjective Notes: 3 Day Interim History: Medical record and nursing notes reviewed; case discussed during rounds with team/nursing staff, and met with patient for supportive therapy/psychoeducation, as well as medication management. Patient slept for 8 hours, was medication compliant, denies side effects, visible and attending groups, reports less anxious compared to yesterday. Continue saying she missed her family. She asked if she able to leave tomorrow. Refer patient to talk to attending. She said 3 days which is up on Monday. Blood pressure fluctuated. Medication Compliance: Yes Side effects from medications: No Attending Groups: Yes Review of Systems Acute medical concerns: No Medical Review of Systems: unchanged Review of Systems Review of Systems Denies any shortness of breath, chest pain, dizziness, lightheadedness, abdominal pain or discomfort, nausea vomiting or diarrhea Yes all other systems are reviewed and are negative Mental Status Exam Mental Status Exam Narrative: Pt is alert and oriented; behavior is cooperative, friendly but anxious; patient is not in distress; dressed in hospital attire with adequate hygiene; mood is described as anxious but better and affect congruent; eye contact appropriate; Speech is normal rate, volume and prosody and not pressured; no psychomotor agitation/retardation present; thought process is organized and goal directed; Thought content is on tx; otherwise pertinent to relevant topics and without any delusional content, paranoid ideations or grandiosity; denies any SI/HI. Denies AVH and there is no evidence of perceptual disturbance. Patients insight and judgment appear intact. Diagnostics Vital Signs (24Hr): Vital Signs - 24 hr 12/28/24 12:19 12/28/24 13:29 12/28/24 20:00 Temperature 97.4 F 97.5 F Pulse Rate 70 78 73 Respiratory Rate 16 16 Blood Pressure 177/80 H 137/68 140/78 H Pulse Oximetry 100 98 Oxygen Delivery Method Room Air Room Air 12/29/24 07:51 Temperature 97.6 F Pulse Rate 65 Respiratory Rate 18 Blood Pressure 148/66 H Pulse Oximetry 99 Oxygen Delivery Method Room Air BMI result Body Mass Index 23.5 Labs 12/25/24 13:03 12/25/24 13:03 Medications Medications Current Medications Acetaminophen (Acetaminophen 325 Mg Tablet) 650 mg PO Q6H PRN PRN Reason: Headache/Pain, Scale 1-10 Al Hydroxide/Mg Hydroxide (Magnesium Hydrox/Alum Hydrox 30 Ml Oral.Susp) 30 ml PO Q6H PRN PRN Reason: Heartburn/Nausea Apixaban (Apixaban 5 Mg Tablet) 5 mg PO BID@0800,1800 [facility] Last Admin: 12/29/24 08:03 Dose: 5 mg Artificial Tears (Artificial Tears 15 Ml Drops) 1 drop EYE-BOTH DAILY PRN PRN Reason: Dry Eye(S) Escitalopram Oxalate (Escitalopram Oxalate 10 Mg Tablet) 10 mg PO DAILY [facility] Last Admin: 12/29/24 08:02 Dose: 10 mg Hydroxyzine HCl (Hydroxyzine Hcl 50 Mg Tablet) 50 mg PO Q6H PRN PRN Reason: Anxiety Last Admin: 12/28/24 12:22 Dose: 50 mg Lisinopril (Lisinopril 5 Mg Tablet) 5 mg PO DAILY [facility]; Protocol Last Admin: 12/29/24 08:02 Dose: 5 mg Magnesium Hydroxide (Milk Of Magnesia 30 Ml Oral.Susp) 30 ml PO DAILY PRN PRN Reason: Constipation Metoprolol Succinate (Metoprolol Succinate Er 25 Mg Tab.Er.24h) 25 mg PO DAILY [facility]; Protocol Last Admin: 12/29/24 08:02 Dose: 25 mg Nicotine Polacrilex (Nicotine Polacrilex 2 Mg Gum) 2 mg BUCCAL Q2H PRN PRN Reason: Nicotine Cravings Simethicone (Simethicone 80 Mg Tab.Chew) 240 mg PO BID [facility] Last Admin: 12/29/24 08:01 Dose: 240 mg Thiamine HCl (Thiamine Hcl 100 Mg Tablet) 100 mg PO DAILY [facility] Last Admin: 12/29/24 08:02 Dose: 100 mg Trazodone HCl (Trazodone Hcl 50 Mg Tablet) 50 mg PO BEDTIME MRX1 PRN PRN Reason: Insomnia Allergies Allergies Allergy/AdvReac Type Severity Reaction Status Date / Time No Known Allergies Allergy Verified 12/25/24 11:18 Assessment & Plan Assessment & Plan (1) Depression: Status: Acute Code(s): F32.A - Depression, unspecified (2) Suicidal ideation: Status: Acute Code(s): R45.851 - Suicidal ideations (3) HTN (hypertension): Status: Acute Code(s): I10 - Essential (primary) hypertension Plan HPI: Patient is a 79 year old, , Moldovan speaking, female who self -presented to the ED reporting depression and suicidal ideation with a plan. Patient was seen at her PCP this morning and her PCP advocated for patient to be assessed. Patient reported increased depression, patient has been reporting to that I wish I were . Patient reported that she often thinks about suicide and has a plan to drive my sport car on the [place] passed the [place] exit where the openness is and crash. Patient reported that she has also had a significant weight loss of approximately 20lbs in the past 6+ months due to not being able to taste/smell. Increased sleep, increased depression, increased suicidal thoughts with plan. No prior history of psychiatric admission. No outpatient psychiatrist or therapist. Not currently on antidepressant. Due to back surgery, she can not do any favorite activities such as traveling, skiing, hiking, gardening. She also drink 5-6 small classes of why daily in the past 10 years to help with depression and help her sleep at night. Formulation/clinical reasoning: Lost weight due to lost of taste after the back surgery, can not travel, skiing, hiking, gardening or other activities as she used to do before surgery. She feels some decline in cognitive-forgetful things. Increase suicidal thoughts with plan. History of two passive suicide attempts where she walked out of the house without shoes, without winter coat and [place] time. No current psychiatric treatment. She has been drinking 5-6 glasses of wine daily in the past 10 years to cope with depression, and help her sleep. The above information contribute to her suicidal thoughts and depression. She was diagnosed with depression. Given the above information. Patient good benefit from restrictive environment for her safety. Medication management, and refer patient to outpatient services with [facility], outpatient psychiatrist and therapist. Hospital course: 12/26/24: Denies SI/SIB/HI/AVH. Mild cognitive decline but appropriate. Review with patient regarding medication list. Patient agrees to start Lexapro 5 mg for depression which she was supposed to take from her PCP but she has not yet started. She is very motivated for treatment Lexapro 5 mg daily in the morning. First dose given today. Eliquis 5 mg twice a day as blood thinner Artificial eye drops for dry eye daily p.r.n. Ativan PRNs per [facility] protocol. Not yet seen any symptoms of withdrawal at this current time. Blood pressure slightly elevated Simethicone 240 mg twice a day as needed for gas Thiamine-vitamin B1 100 mg daily Trazodone and hydroxyzine 25 mg as needed per protocol. 12/27 Patient reports intermittent passive SI started when she was 78 yo (up until which time she was very active). Then sciatica; disc surgery; other co- morbid stuff severely limiting her very active life Patient says that her was concerned concerned about SI comments but patient said that although she said it, it was just in frustration and she was not thinking of actually harming herself at all and denies any intent or plan. She says she has not had any actual real suicidal ideation since her grandchildren were born, 9 years ago. Discussed medications and patient reports that she has to be on an antidpepressant, that helped but also caused a lot of sweating; can not remember the name of it. She wants to be back on medication and agrees with having been restarted on Lexapro and titrating it. Also discussed T MS. Patient shared about trauma history and said she could use a good therapist. 12/28/24: Slept well, compliant with medications. No side effects. Mood is anxious and depressed, somewhat tearful, missing home. No safety concerns. Increase Lexapro up to 10 mg daily to target depression/anxiety. Discontinue CIWA and Ativan per protocol. Three day notice in place. 12/29/24: Continue with current medication plan, visible, attended groups, appear anxious and depressed, pleasant and cooperative. No side effects from medications. She hopes she can be discharged tomorrow. Plan: Patient on 15 minute checks. Three day notice on 01/01-Monday. Titration on Lexapro. TMS consult placed Work with treatment team to do collateral for aftercare. Patient good like to get more information regarding PHP. Patient was [place] [facility] [facility] Patient educated on: medication risk/benefits and therapeutic strategies Informed Consent: understands Reason for continued inpatient stay Substantial Risk for: med/psych decompensation Time Spent With Patient Time: Total time managing care of this patient today ____ minutes.
[2024-12-29 20:00] VITALS: BP 174/74; PULSE 69; RESP 16; TEMP 36.8; O2SAT 99
[2024-12-30 08:00] VITALS: BP 158/69; PULSE 75; RESP 116; TEMP 36.6; O2SAT 98
[2024-12-30 08:59] VITALS: BP 158/69; PULSE 75
[2024-12-30] MEDS: Metoprolol Succinate ER 25 MG TAB.ER.24H PO (08:59)
[2024-12-30 09:00] VITALS: BP 158/69
--- NOTE | 2024-12-30 12:46 | HO.PSYCHPN ---
Subjective Subjective Date of Service: 12/30/24 Reason For Visit: SI/ Depression Subjective Notes: 3 Day Interim History: <del>Active</del> <del>on</del> <del>unit.</del> <del>patient</del> <del>reports</del> <del>feeling</del> <del> frustrated </del> <del>d/t</del> <del>believing</del> <del>her</del> <del>3</del> <del>day</del> <del>notice</del> <del>was</del> <del>up</del> <del>today</del> <del>rather</del> <del>than</del> <del>01/01/25.</del> <del>Patient</del> <del>reports</del> <del>feeling</del> <del> better </del> <del>and</del> <del>requesting</del> <del>to</del> <del>be</del> <del>discharged</del> <del>home;</del> <del>pt</del> <del>stated,</del> <del> I</del> <del>was</del> <del>having</del> <del>a</del> <del>hard</del> <del>time</del> <del>dealing</del> <del>with</del> <del>all</del> <del>the</del> <del>changes.</del> <del>I</del> <del>came</del> <del>to</del> <del>the</del> <del>hospital</del> <del>because</del> <del>I</del> <del>wanted</del> <del>to</del> <del>be</del> <del>able</del> <del>to</del> <del>start</del> <del>something</del> <del>for</del> <del>my</del> <del>mood</del> <del>and</del> <del>a</del> <del>therapy</del> <del>appointment</del> <del>sooner</del> <del>than</del> <del>6</del> <del>months</del> <del>from</del> <del>now.</del> <del>I</del> <del>have</del> <del>no</del> <del>desire</del> <del>to</del> <del>want</del> <del>to</del> <del>harm</del> <del>myself</del> <del>or</del> <del>anyone</del> <del>else .</del> <del>future</del> <del>oriented.</del> <del>denies</del> <del>any</del> <del>side</del> <del>effects</del> <del>from</del> <del>medications.</del> <del>denies</del> <del>SI/HI/VH/AH.</del> <del>Patient</del> <del>reports</del> <del>she</del> <del>plans</del> <del>on</del> <del>following</del> <del>up</del> <del>with</del> <del>outpatient</del> <del>providers.</del> <del>Plan</del> <del>to</del> <del>discharge</del> <del>home</del> <del>tomorrow;</del> <del>pt</del> <del>aware.</del> Medication Compliance: Yes Side effects from medications: No Attending Groups: Yes Mental Status Exam Mental Status Exam Narrative: Pt is alert and oriented; behavior is cooperative and calm; dressed in casual attire; mood is described as good ; eye contact appropriate; Speech is normal rate, volume and not pressured; thought process is organized; Thought content is on tx/discharge; denies SI/HI/VH/AH. Diagnostics Vital Signs (24Hr): Vital Signs - 24 hr 12/29/24 20:00 12/30/24 08:00 12/30/24 08:59 Temperature 98.3 F 97.8 F Pulse Rate 69 75 75 Respiratory Rate 16 116 H Blood Pressure 174/74 H 158/69 H 158/69 H Pulse Oximetry 99 98 Oxygen Delivery Method Room Air Room Air 12/30/24 09:00 Temperature Pulse Rate Respiratory Rate Blood Pressure 158/69 H Pulse Oximetry Oxygen Delivery Method BMI result Body Mass Index 23.5 Labs 12/25/24 13:03 12/25/24 13:03 Medications Medications Current Medications Acetaminophen (Acetaminophen 325 Mg Tablet) 650 mg PO Q6H PRN PRN Reason: Headache/Pain, Scale 1-10 Al Hydroxide/Mg Hydroxide (Magnesium Hydrox/Alum Hydrox 30 Ml Oral.Susp) 30 ml PO Q6H PRN PRN Reason: Heartburn/Nausea Apixaban (Apixaban 5 Mg Tablet) 5 mg PO BID@0800,1800 [facility] Last Admin: 12/30/24 08:59 Dose: 5 mg Artificial Tears (Artificial Tears 15 Ml Drops) 1 drop EYE-BOTH DAILY PRN PRN Reason: Dry Eye(S) Escitalopram Oxalate (Escitalopram Oxalate 10 Mg Tablet) 10 mg PO DAILY [facility] Last Admin: 12/30/24 09:00 Dose: 10 mg Hydroxyzine HCl (Hydroxyzine Hcl 50 Mg Tablet) 50 mg PO Q6H PRN PRN Reason: Anxiety Last Admin: 12/29/24 17:13 Dose: 50 mg Lisinopril (Lisinopril 5 Mg Tablet) 5 mg PO DAILY [facility]; Protocol Last Admin: 12/30/24 09:00 Dose: 5 mg Magnesium Hydroxide (Milk Of Magnesia 30 Ml Oral.Susp) 30 ml PO DAILY PRN PRN Reason: Constipation Metoprolol Succinate (Metoprolol Succinate Er 25 Mg Tab.Er.24h) 25 mg PO DAILY [facility]; Protocol Last Admin: 12/30/24 08:59 Dose: 25 mg Nicotine Polacrilex (Nicotine Polacrilex 2 Mg Gum) 2 mg BUCCAL Q2H PRN PRN Reason: Nicotine Cravings Simethicone (Simethicone 80 Mg Tab.Chew) 240 mg PO BID [facility] Last Admin: 12/30/24 08:59 Dose: 240 mg Thiamine HCl (Thiamine Hcl 100 Mg Tablet) 100 mg PO DAILY [facility] Last Admin: 12/30/24 09:00 Dose: 100 mg Trazodone HCl (Trazodone Hcl 50 Mg Tablet) 50 mg PO BEDTIME MRX1 PRN PRN Reason: Insomnia Allergies Allergies Allergy/AdvReac Type Severity Reaction Status Date / Time No Known Allergies Allergy Verified 12/25/24 11:18 Assessment & Plan Assessment & Plan (1) Depression: Status: Acute Code(s): F32.A - Depression, unspecified (2) Suicidal ideation: Status: Acute Code(s): R45.851 - Suicidal ideations (3) HTN (hypertension): Status: Acute Code(s): I10 - Essential (primary) hypertension Plan HPI: Patient is a 79 year old, , Singaporean speaking, female who self -presented to the ED reporting depression and suicidal ideation with a plan. Patient was seen at her PCP this morning and her PCP advocated for patient to be assessed. Patient reported increased depression, patient has been reporting to that I wish I were . Patient reported that she often thinks about suicide and has a plan to drive my sport car on the [place] passed the [place] exit where the openness is and crash. Patient reported that she has also had a significant weight loss of approximately 20lbs in the past 6+ months due to not being able to taste/smell. Increased sleep, increased depression, increased suicidal thoughts with plan. No prior history of psychiatric admission. No outpatient psychiatrist or therapist. Not currently on antidepressant. Due to back surgery, she can not do any favorite activities such as traveling, skiing, hiking, gardening. She also drink 5-6 small classes of why daily in the past 10 years to help with depression and help her sleep at night. Formulation/clinical reasoning: Lost weight due to lost of taste after the back surgery, can not travel, skiing, hiking, gardening or other activities as she used to do before surgery. She feels some decline in cognitive-forgetful things. Increase suicidal thoughts with plan. History of two passive suicide attempts where she walked out of the house without shoes, without winter coat and lying down on the golf ?near her house during winter time. No current psychiatric treatment. She has been drinking 5-6 glasses of wine daily in the past 10 years to cope with depression, and help her sleep. The above information contribute to her suicidal thoughts and depression. She was diagnosed with depression. Given the above information. Patient good benefit from restrictive environment for her safety. Medication management, and refer patient to outpatient services with PHP, outpatient psychiatrist and therapist. Plan: Patient on 15 minute checks. Three day notice on 01/01-Monday. Titration on Lexapro. TMS consult placed Work with treatment team to do collateral for aftercare. Patient good like to get more information regarding PHP. Patient was medically cleared at [facility]. Hospital course: 12/26/24: Denies SI/SIB/HI/AVH. Mild cognitive decline but appropriate. Review with patient regarding medication list. Patient agrees to start Lexapro 5 mg for depression which she was supposed to take from her PCP but she has not yet started. She is very motivated for treatment Lexapro 5 mg daily in the morning. First dose given today. Eliquis 5 mg twice a day as blood thinner Artificial eye drops for dry eye daily p.r.n. Ativan PRNs per [facility] protocol. Not yet seen any symptoms of withdrawal at this current time. Blood pressure slightly elevated Simethicone 240 mg twice a day as needed for gas Thiamine-vitamin B1 100 mg daily Trazodone and hydroxyzine 25 mg as needed per protocol. 12/27 Patient reports intermittent passive SI started when she was 78 yo (up until which time she was very active). Then sciatica; disc surgery; other co-morbid stuff severely limiting her very active life Patient says that her was concerned concerned about SI comments but patient said that although she said it, it was just in frustration and she was not thinking of actually harming herself at all and denies any intent or plan. She says she has not had any actual real suicidal ideation since her grandchildren were born, 9 years ago. Discussed medications and patient reports that she has to be on an antidpepressant, that helped but also caused a lot of sweating; can not remember the name of it. She wants to be back on medication and agrees with having been restarted on Lexapro and titrating it. Also discussed T MS. Patient shared about trauma history and said she could use a good therapist. 12/28/24: Slept well, compliant with medications. No side effects. Mood is anxious and depressed, somewhat tearful, missing home. No safety concerns. Increase Lexapro up to 10 mg daily to target depression/anxiety. Discontinue CIWA and Ativan per protocol. Three day notice in place. 12/29/24: Continue with current medication plan, visible, attended groups, appear anxious and depressed, pleasant and cooperative. No side effects from medications. She hopes she can be discharged tomorrow. 12/30: Active on unit. patient reports feeling frustrated d/t believing her 3 day notice was up today rather than 01/01/25. Patient reports feeling better and requesting to be discharged home; pt stated, I was having a hard time dealing with all the changes. I came to the hospital because I wanted to be able to start something for my mood and a therapy appointment sooner than 6 months from now. I have no desire to want to harm myself or anyone else . future oriented. denies any side effects from medications. denies SI/HI/VH/AH. Patient reports she plans on following up with outpatient providers. Plan to discharge home tomorrow; pt aware. Patient educated on: diagnosis and medication risk/benefits Reason for continued inpatient stay Substantial Risk for: stable for discharge Time Spent With Patient Time: Total time managing care of this patient today _20___ minutes.
[2024-12-30 20:00] VITALS: BP 149/79; PULSE 71; RESP 16; TEMP 37; O2SAT 99
[2024-12-31 08:30] VITALS: BP 158/69; PULSE 75
[2024-12-31] MEDS: Metoprolol Succinate ER 25 MG TAB.ER.24H PO (08:30)
[2024-12-31 08:31] VITALS: BP 158/69
--- NOTE | 2024-12-31 09:21 | PM.PSYDC ---
DS: Providers Provider Date of Service: 12/31/24 Date of admission: 12/26/24 12:35 Date of discharge: 12/31/24 Primary care physician: JONATHAN Acuna Admitting clinician: Mago May Attending physician on admission: Cesar Rhodes Consults: 12/27/24 10:53 Consult to Hospitalist Routine Comment: Consulting Provider: [facility] Reason For Exam: medical assessment 12/27/24 10:55 Consult to Hospitalist Routine Comment: Consulting Provider: [facility] Reason For Exam: admission physical Attending physician on discharge: Roderick Robertson Discharging clinician: Malissa Rothman DS: Diagnosis Discharge Diagnosis (1) Depression: Status: Acute (2) Suicidal ideation: Status: Acute (3) HTN (hypertension): Status: Acute DS: Medications Discharge Medications Home Medications: Home Medications ?Medication ?Instructions ?Recorded ?Confirmed apixaban 5 mg tablet (Eliquis) 5 mg PO BID 12/25/24 12/26/24 lisinopril 5 mg tablet 5 mg PO DAILY 12/25/24 12/25/24 metoprolol succinate 25 mg 25 mg PO DAILY 12/25/24 12/25/24 tablet,extended release 24 hr peg 400-propylene glycol (PF) 0.4 1 drp ophthalmic (eye) DAILY PRN 12/25/24 12/25/24 %-0.3 % eye drops in a dropperette Dry Eye(S) (Systane (PF)) simethicone 250 mg capsule 250 mg PO BID PRN Gas 12/25/24 12/25/24 Previous Rx's ?Medication ?Instructions ?Recorded escitalopram oxalate 10 mg tablet 10 mg PO DAILY 30 days #30 tabs 12/30/24 hydroxyzine HCl 50 mg tablet 50 mg PO BID PRN Anxiety 7 days 12/31/24 #14 tabs Mental Status Exam Mental Status Exam Narrative: Pt is alert and oriented; behavior is cooperative and calm; dressed in casual attire; mood is described as good ; eye contact appropriate; Speech is normal rate, volume and not pressured; thought process is organized; Thought content is on tx/discharge; denies SI/HI/VH/AH. Data Data Completed and Pending Completed studies during hospitalization [Text1]: 12/25/24 12/25/24 11:35 13:03 WBC 3.8 L RBC 4.13 L Hgb 14.0 Hct 39.6 MCV 95.9 MCH 33.9 H MCHC 35.4 H RDW 12.6 Plt Count 159 L MPV 10.8 Immature Gran % (Auto) 0.3 Neut % (Auto) 49.9 Lymph % (Auto) 35.9 [place] % (Auto) 11.5 H Eos % (Auto) 1.6 Baso % (Auto) 0.8 Lymph # (Auto) 1.4 [place] # (Auto) 0.4 Eos # (Auto) 0.1 Baso # (Auto) 0.0 Abs Immat Gran (auto) 0.01 Absolute Neuts (auto) 1.9 L Absolute Nucleated RBC 0.000 Nucleated RBC % (auto) 0.0 Sodium 142 Potassium 4.4 Chloride 110 H Carbon Dioxide 24 Anion Gap 12 BUN 10 Creatinine 0.60 Estim Creat Clear Calc 67.2 Estimated GFR > 60 Random Glucose 99 Calcium 8.9 Total Bilirubin 0.7 AST 25 ALT 6 Alkaline Phosphatase 56 Total Protein 6.6 Albumin 3.9 Urine Color Dark Yellow Urine Appearance Clear Urine pH 5.5 Ur Specific [place] 1.015 Urine Protein Negative Urine Glucose (UA) Negative Urine Ketones Negative Urine Blood Trace H Urine Nitrite Negative Ur Leukocyte Esterase Trace H Urine RBC 3-5 H Urine WBC 0-5 Ur Squamous Epith Cells 0-2 Urine Bacteria None Seen Hyaline Casts 0-2 Salicylates < 5.0 L Urine Opiates Screen Not Detected Ur Buprenorphine Scrn Not Detected Ur Oxycodone Screen Not Detected Urine Methadone Screen Not Detected Urine Fentanyl Screen Not Detected Acetaminophen < 3 Ur Barbiturates Screen Not Detected Ur Phencyclidine Scrn Not Detected Ur Amphetamines Screen Not Detected U Benzodiazepines Scrn Not Detected Urine Cocaine Screen Not Detected U Marijuana (THC) Screen Not Detected Ethyl Alcohol < 10 DS: Summary Hospital Course Hospital Course: Patient is a 79 year old, , Tunisian speaking, female who self -presented to the ED reporting depression and suicidal ideation with a plan. Patient was seen at her PCP this morning and her PCP advocated for patient to be assessed. Patient reported increased depression, patient has been reporting to that I wish I were . Patient reported that she often thinks about suicide and has a plan to drive my [place] car on the [place] passed the [place] exit where the openness is and crash. Patient reported that she has also had a significant weight loss of approximately 20lbs in the past 6+ months due to not being able to taste/smell. Patient be seen in the group room after dinner at 1710. Chief complaint: I have been suicidal the past year. I have hard time dealing with it . Precipitants: Patient reports she stopped her antidepressants for about a year. Can not recall the name of the medication. She was not happy enough with her childhood. Her daughter and the was self rated which trigger her childhood. 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 She used to do a lot of traveling with the , hiking, skiing, gardening. However she was not able to do it anymore after COVID and after her back surgery which increased her depression. She feels decline in memory he is also another factor and contribute to her depression. Currently has no psychiatrist. She used to see a psychiatrist back in 1966 as an add goes when she has tough time making her my regarding getting . She has no therapist but have active PCP who she saw yesterday on 12/25.. No family psychiatric history. However sister due to alcohol. Currently has no suicidal thoughts/no SIB/HI/AVH. Reports suicidal thoughts history. She never attempted commit suicide. However report that does to time that she walked away in winter time with no shoes on, no winter coat on, and she was walking out and she was [place] the [place]. Reports she has been sleeping too much-12 hours a day-it is not normal . Lost 20 lb since last year after she lost her sense of taste. Her doctor was not sure is from COVID or due to aging. HPI: Patient is a 79 year old, , Tunisian speaking, female who self -presented to the ED reporting depression and suicidal ideation with a plan. Patient was seen at her PCP this morning and her PCP advocated for patient to be assessed. Patient reported increased depression, patient has been reporting to that I wish I were . Patient reported that she often thinks about suicide and has a plan to drive my sport car on the [place] passed the [place] exit where the openness is and crash. Patient reported that she has also had a significant weight loss of approximately 20lbs in the past 6+ months due to not being able to taste/smell. Increased sleep, increased depression, increased suicidal thoughts with plan. No prior history of psychiatric admission. No outpatient psychiatrist or therapist. Not currently on antidepressant. Due to back surgery, she can not do any favorite activities such as traveling, skiing, hiking, gardening. She also drink 5-6 small classes of why daily in the past 10 years to help with depression and help her sleep at night. Formulation/clinical reasoning: Lost weight due to lost of taste after the back surgery, can not travel, skiing, hiking, gardening or other activities as she used to do before surgery. She feels some decline in cognitive-forgetful things. Increase suicidal thoughts with plan. History of two passive suicide attempts where she walked out of the house without shoes, without winter coat and lying down on the golf ?near [place] house during winter time. No current psychiatric treatment. She has been drinking 5-6 glasses of wine daily in the past 10 years to cope with depression, and help her sleep. The above information contribute to her suicidal thoughts and depression. She was diagnosed with depression. Given the above information. Patient good benefit from restrictive environment for her safety. Medication management, and refer patient to outpatient services with PHP, outpatient psychiatrist and therapist. Plan: Patient on 5 minute checks for safety 24 hours. We will reassess if patient appropriate for 15 minutes check Admitted to . CV. Work with treatment team to do collateral for aftercare. Patient good like to get more information regarding PHP. Patient was medically cleared at [facility]. Hospital course: 12/26/24: Denies SI/SIB/HI/AVH. Mild cognitive decline but appropriate. Review with patient regarding medication list. Patient agrees to start Lexapro 5 mg for depression which she was supposed to take from her PCP but she has not yet started. She is very motivated for treatment Lexapro 5 mg daily in the morning. First dose given today. Eliquis 5 mg twice a day as blood thinner Artificial eye drops for dry eye daily p.r.n. Ativan PRNs per [facility] protocol. Not yet seen any symptoms of withdrawal at this current time. Blood pressure slightly elevated Simethicone 240 mg twice a day as needed for gas Thiamine-vitamin B1 100 mg daily Trazodone and hydroxyzine 25 mg as needed per protocol. Patient reports intermittent passive SI started when she was 78 yo (up until which time she was very active). Then sciatica; disc surgery; other co-morbid stuff severely limiting her very active life Patient says that her was concerned concerned about SI comments but patient said that although she said it, it was just in frustration and she was not thinking of actually harming herself at all and denies any intent or plan. She says she has not had any actual real suicidal ideation since her grandchildren were born, 9 years ago. Discussed medications and patient reports that she has to be on an antidpepressant, that helped but also caused a lot of sweating; can not remember the name of it. She wants to be back on medication and agrees with having been restarted on Lexapro and titrating it. Also discussed T MS. Patient shared about trauma history and said she could use a good therapist. Slept well, compliant with medications. No side effects. Mood is anxious and depressed, somewhat tearful, missing home. No safety concerns. Increase Lexapro up to 10 mg daily to target depression/anxiety. Discontinue CIWA and Ativan per protocol. Three day notice in place. Continue with current medication plan, visible, attended groups, appear anxious and depressed, pleasant and cooperative. No side effects from medications. She hopes she can be discharged tomorrow. Active on unit. patient reports feeling frustrated d/t believing her 3 day notice was up today rather than 01/01/25. Patient reports feeling better and requesting to be discharged home; pt stated, I was having a hard time dealing with all the changes. I came to the hospital because I wanted to be able to start something for my mood and a therapy appointment sooner than 6 months from now. I have no desire to want to harm myself or anyone else . future oriented. denies any side effects from medications. denies SI/HI/VH/AH. Patient reports she plans on following up with outpatient providers. Plan to discharge home tomorrow; pt aware. Status at Discharge Cognitive/behavioral status at discharge: Patient has insight and demonstrates good judgment in terms of wanting to pursue treatment. Patient has a safety plan that includes presenting to the closest ER or calling 911 if feeling unsafe. Functional status at discharge: independent ambulation Overall status at discharge: patient is back to baseline Time Spent with Patient Time attestation: Total time managing care of this patient today _20___ minutes. Time spent: Less than 30 minutes Discharge Plan Discharge Anticipated Discharge Date/Time: 12/31/24 09:00 Patient Disposition: Home, Self-Care Discharge Diagnosis: Depression Referrals: Therapy [Other] - 1 Week Referral Note: *You have been placed on a waiting list for therapy. Please reach out to intake staff at the phone number listed above with any questions. Tere Verma (Psychiatry) [Other] - 01/17/25 12:00 pm Referral Note: IN OFFICE APPOINTMENT Therapy [Other] - 1 Week Referral Note: *You can present to the agency above, Monday through Monday during the hours of 10am and 12pm, in order to be seen that day by a therapist. Janet Garcia PA [Primary Care Provider, Internal Medicine] - 1 Week Referral Note: 12-30-24 Please contact your primary care provider to schedule a follow up appt within 7-10 days of your discharge. No release on file. Discharge Medications: New escitalopram oxalate 10 mg Tablet 10 mg PO DAILY 30 Days Qty: 30 0RF hydroxyzine HCl 50 mg Tablet 50 mg PO BID PRN (Reason: Anxiety) 7 Days Qty: 14 0RF Continued lisinopril 5 mg tablet 5 mg PO DAILY metoprolol succinate 25 mg tablet extended release 24 hr 25 mg PO DAILY Systane (PF) 0.4-0.3 % Dropperette 1 drp OPHTHALMIC (EYE) DAILY PRN (Reason: Dry Eye(S)) Eliquis 5 mg tablet 5 mg PO BID Rx Instructions: Take 1 tablet in am and 1 tablet at dinner time simethicone 250 mg Capsule 250 mg PO BID PRN (Reason: Gas ) Discharge Orders: Discharge Order (Routine); Ordered 12/31/24 Ordered By: Malissa Rothman Diet: Regular diet Activity on Discharge: As tolerated Stand Alone Forms: Patient Portal Discharge page, Community Support Print Language: Tunisian Care Plan Goals: Maintain mood and safe behaviors Take medications as prescribed Practice coping skills Continue with outpatient providers and reach out to them as needed Health Concerns: Mood stability and behaviors Plan of Treatment: Follow up with your PCP, psychiatric provider and other outpatient providers regarding above concerns Take medications as prescribed Assessment: Patient has insight and demonstrates good judgment in terms of wanting to pursue treatment. Patient has a safety plan that includes presenting to the closest ER or calling 911 if feeling unsafe. Discharge Date/Time: 12/31/24 09:44
== END 2024-12-31 09:44 | disposition home or self-care (01) | DRG 881 ==
LOC: HO.ED 19:47 → HO.PGERI 12-26 14:22 → HO.PADLT16 12-27 15:23
PROVIDERS: Physician Assistant Medical; Admitting Provider Psychiatry & Neurology Psychiatry; Emergency Provider Emergency Medicine; PCP Physician Assistant Medical; Responsible Provider Registered Nurse; Visit Provider Psychiatry & Neurology Psychiatry
DX: F32.A Depression, unspecified (principal); R45.851 Suicidal ideations; I10 Essential (primary) hypertension; Z87.891 Personal history of nicotine dependence; Z86.718 Personal history of other venous thrombosis and embolism; Z79.01 Long term (current) use of anticoagulants; Z79.899 Other long term (current) drug therapy
CPT/HCPCS: 36415; 80053; 80143; 80179; 80307; 81001; 85025; 93005; 99285; S9485

== ENCOUNTER → 2024-12-25 14:59 | Outpatient (BNV) | payer MEDICARE, SELFPAY | PROVIDERS: Emergency Provider Emergency Medicine; PCP Physician Assistant Medical; Visit Provider Internal Medicine Cardiovascular Disease | DX: Z13.6 Encounter for screening for cardiovascular disorders (principal) | CPT/HCPCS: 93010 ==

== ENCOUNTER → 2024-12-26 12:35 | Outpatient (BNV) | payer MEDICARE, SELFPAY | PROVIDERS: Admitting Provider Psychiatry & Neurology Psychiatry; Emergency Provider Emergency Medicine; PCP Physician Assistant Medical; Visit Provider Nurse Practitioner Family | DX: I74.3 Embolism and thrombosis of arteries of the lower extremities (principal) | CPT/HCPCS: 99221 ==

== ENCOUNTER → 2024-12-26 12:35 | Outpatient (BNV) | payer MEDICARE, SELFPAY | PROVIDERS: Admitting Provider Psychiatry & Neurology Psychiatry; Emergency Provider Emergency Medicine; PCP Physician Assistant Medical; Visit Provider Nurse Practitioner Psychiatric/Mental Health | DX: F32.2 Major depressive disorder, single episode, severe without psychotic features (principal); R45.851 Suicidal ideations; I10 Essential (primary) hypertension | CPT/HCPCS: 90792; 99231; 99232 ==